=== PATIENT | male | born 1960 | race American Indian/Alaskan Native ===

== ENCOUNTER 2016-11-30 20:45 | Inpatient (IN) | payer OTHER ==
--- NOTE | 2016-11-30 23:41 | Emergency Department Report ---
HPI - General Chief Complaint: Overdose Time Seen by Provider: 11/30/16 22:46 - HPI HPI: The patient is a 56-year-old male presents for evaluation of mental health and the patient reports 3 days of constant severe sadness and suicidal ideation, exacerbated with argument with family members. He states that he intentionally overdosed on prescription blood pressure medications 2 days ago. He states that he has not consumed any medications or other potentially harmful ingestions within the past 24 hours. He also complains of generalized weakness , nausea, mild to moderate generalized abdominal pain, crampy in quality, and moderate to severe lightheadedness, exacerbated with standing, improved with lying down, also for the past 24-48hrs. He admits to decreased urination for the past 24 hours. The patient denies fever, headache, unexplained weight loss or weight gain, heat or cold intolerance, skin, hair, or nail changes, neuro deficits, homicidal ideations, or auditory or visual hallucinations. ED Past Medical Hx - Past Medical History Previous Medical History?: Yes Hx Hypertension: Yes - Surgical History Past Surgical History?: Yes Additional Surgical History: colon CA - Social History Smoking Status: Current Every Day Smoker Substance Use Type: Alcohol - Medications Home Medications: Home Medications Medication Instructions Recorded Confirmed Last Taken Type amLODIPine [Norvasc] 5 mg PO DAILY 12/01/16 12/01/16 1 Day Ago History 5 ED Review of Systems ROS: Stated complaint: MENTAL HEALTH EVALUATION Other details as noted in HPI Constitutional: denies: fever reports weakness ENT: denies: throat or neck pain Respiratory: denies: cough, shortness of breath Cardiovascular: denies: chest pain Endocrine: denies unexplained weight loss or gain Gastrointestinal: reports abdominal pain, nausea Genitourinary: denies: dysuria Musculoskeletal: denies: leg swelling Skin: denies: rash Neurological: denies: headache Hematological/Lymphatic: denies: easy bleeding or easy bruising Psych: reports sadness or hopelessness Physical Exam - Physical Exam Vital Signs: Vital Signs 11/30/16 11/30/16 11/30/16 21:19 22:55 22:59 Temperature 97.6 F Pulse Rate 64 54 L Respiratory 22 21 21 Rate Blood Pressure 100/49 Blood Pressure 94/59 [Left] O2 Sat by Pulse 97 96 96 Oximetry 11/30/16 23:02 Temperature Pulse Rate 53 L Respiratory 21 Rate Blood Pressure Blood Pressure 94/59 [Left] O2 Sat by Pulse 96 Oximetry Physical Exam: General: well-nourished, well-developed, no acute distress Head: Normocephalic, atraumatic Eyes: normal sclera ENT: Mucous membranes are pale and dry Neck: No neck stiffness, no cervical adenopathy Respiratory: Breath sounds equal bilaterally, no wheezing, rales, or rhonchi Cardio: S1 and S2 present, no murmurs, rubs, gallops, capillary refill is delayed Abdomen: Normoactive bowel sounds, soft abdomen, no rigidity, no guarding or rebound tenderness Musc: No pitting edema Skin: No rash Neuro: no facial drooping, normal speech Psych: patient tearful, flat affect, depressed mood, poor insight, no hallucinations ED Course Vital Signs 11/30/16 11/30/16 11/30/16 21:19 22:55 22:59 Temperature 97.6 F Pulse Rate 64 54 L Respiratory 22 21 21 Rate Blood Pressure 100/49 Blood Pressure 94/59 [Left] O2 Sat by Pulse 97 96 96 Oximetry 11/30/16 23:02 Temperature Pulse Rate 53 L Respiratory 21 Rate Blood Pressure Blood Pressure 94/59 [Left] O2 Sat by Pulse 96 Oximetry ED Medical Decision Making - Lab Data Result diagrams: 11/30/16 23:18 11/30/16 23:18 - Medical Decision Making The patient was seen and examined by myself. The patient is placed on a manager cardiac cath and continuous pulse ox. On initial evaluation, the patient was found to be in no distress. Evaluation orders were placed. The patient is given 2 L of saline fluid bolus for treatment of his dehydration. Lab results reveals significantly elevated creatinine of 7, and mild leukocytosis of 12.8. The patient is questioned regarding his severely elevated creatinine level and acute renal failure, he is adamant that he has no history of renal failure. The on-call hospitalist service was contacted. They agreed to admit the patient for further treatment and close monitoring. The ED admit order was placed. The patient was admitted in guarded condition. Critical care attestation.: If time is entered above; I have spent that time in minutes in the direct care of this critically ill patient, excluding procedure time. ED Disposition Clinical Impression: Suicidal behavior, Suicidal ideation, Dehydration, Cocaine abuse, Intentional overdose of drug in tablet form Acute renal failure Qualifiers: Acute renal failure type: unspecified Qualified Code(s): N17.9 - Acute kidney failure, unspecified Disposition: OP ADMITTED IP TO THIS HOSP Is pt being admited?: Yes Does the pt Need Aspirin: Yes Condition: Serious Referrals: PRIMARY CARE, [Primary Care Provider] - 3-5 Days Time of Disposition: 23:40
[2016-11-30 23:49] LABS: Basophils % (Auto) 0.2 % (0.0-1.8); Eosinophils % (Auto) 0.4 % (0.0-4.3); Hematocrit 43.9 % (35.5-45.6); Hemoglobin 14.9 gm/dl (11.8-15.2); Mean Corpuscular HGB Conc 34 % (32-34); Mean Corpuscular Hemoglobin 32 pg (28-32); Mean Corpuscular Volume 94 fl (84-94); Platelet Count 266 K/mm3 (140-440); Red Blood Count 4.69 M/mm3 (3.65-5.03); Red Cell Distribution Width 13.2 % (13.2-15.2); White Blood Count 12.8 K/mm3 (4.5-11.0)
[2016-11-30] MEDS ORDERED: NACL 0.9% 1000 ML 2,000 ML ONE (23:56)
[2016-12-01] LABS: BUN/Creatinine Ratio 4.65; Calcium 9.5 mg/dL (8.4-10.2); Chloride 94.3 mmol/L (98-107); Potassium 4.2 mmol/L (3.6-5.0)
[2016-12-01] MEDS ORDERED: NACL 0.9% 1000 ML IV ONE (00:26)
[2016-12-01] MEDS ORDERED: MILK OF MAGNESIA PO PRN (02:14)
[2016-12-01] MEDS ORDERED: TYLENOL PO PRN (02:14)
[2016-12-01] MEDS ORDERED: ALUM-MAG HYDROX-SIMETH 200-200-20MG/5ML PO PRN (02:14)
[2016-12-01 02:40] LABS: Urine Drugs of Abuse Note Disclamer
[2016-12-01 02:49] LABS: Bilirubin,Urine NEG (Negative); Blood,Urine NEG (Negative); Ketones,Urine NEG (Negative); Leukocyte Esterase,Urine NEG (Negative); Mucus,Urine FEW /HPF; Nitrite,Urine NEG (Negative)
[2016-12-01 03:11] LABS: INR 1.07 (0.87-1.13)
[2016-12-01 03:12] LABS: Partial Thromboplastin Time 26.9 Sec. (24.2-36.6)
[2016-12-01 03:25] LABS: Alanine Aminotransferase 10 units/L (7-56); Albumin 4.2 g/dL (3.9-5); Albumin/Globulin Ratio 1.3 %; Alkaline Phosphatase 56 units/L (35-129); Bilirubin,Total 0.5 mg/dL (0.1-1.2); Lipase 33 units/L (13-60); Total Protein 7.4 g/dL (6.3-8.2)
[2016-12-01 03:26] LABS: Bilirubin,Direct < 0.2 mg/dL (0-0.2); Bilirubin,Indirect 0.3 mg/dL
--- NOTE | 2016-12-01 03:43 | Ultrasound Report ---
FINAL REPORT PROCEDURE: US RENAL BILAT TECHNIQUE: Real-time sonography in multiple planes of the kidneys, ureters and urinary bladder was performed with image documentation. CPT 78186 HISTORY: n/v, abd pain, new ARF COMPARISON: No prior studies are available for comparison. FINDINGS: RIGHT kidney: Normal echotexture. No focal renal mass, calculus, or hydronephrosis. Length: 10.5 cm. LEFT kidney: Normal echotexture. No focal renal mass, calculus, or hydronephrosis. Length: 10.3cm. Bladder: There is a Steinberg catheter within the urinary bladder.. IMPRESSION: Normal evaluation of the kidneys..
[2016-12-01] MEDS ORDERED: NACL 0.9% 1000 ML 1,000 ML IV ONE (03:58)
--- NOTE | 2016-12-01 04:41 | Admit Criteria Form ---
Admission Criteria Documentation: DRUG INGESTION OR OVERDOSE Clinical Indications for Admission to Inpatient Care ( Place 'X' for any and all applicable criteria): Admission is indicated for severe toxicity as indicated by ANY ONE of the following(1)(2)(3)(4)(5)(6): [X ]I. Inpatient admission required rather than observation care (Also use Drug Ingestion or Overdose: Observation Care guideline as appropriate) because of ANY ONE of the following: [ ]a) Altered mental status that is severe or persistent [ ]b) Clinical finding (eg, metabolic acidosis, hypoglycemia, bradycardia) that is severe or persistent [ ]c) Toxic drug level that is persistent [X ]d) Psychiatric risk status not acceptable for outpatient management [ ]e) Continuous intravenous infusion of anticoagulation, platelet inhibitor, vasoactive, or antiarrhythmic medication (15)(16) [X ]f) Other condition, treatment or monitoring requiring inpatient admission [ ]II. Respiratory abnormalities [ ]III. Specific finding indicating severe and likely prolonged drug toxicity [ ]IV. Hemodynamic instability [ ]V. Dangerous arrhythmia [ ]. Hypertension requiring inpatient treatment Extended stay beyond goal length of stay may be needed for (4): [ ]a) Neurologic or respiratory compromise [ ]b) Hemodynamic instability [ ]c) Persistent toxic drug levels (25) [ ]d) Severe drug toxicities or complications [ ]e) Ongoing antidote treatment (eg, acetaminophen overdose)(5) [ ]f) Older patients(65 years or older) The original [facility] content created by [employer] has been revised. The portions of the content which have been revised are identified through the use of italic text or in bold, and [facility] has neither reviewed nor approved the modified material. All other unmodified content is copyright [facility] [employer]. Please see references footnoted in the original [facility] [employer] edition 2016 Admission Criteria Met: Yes
--- NOTE | 2016-12-01 06:17 | History and Physical Report ---
History of Present Illness Date of examination: 12/01/16 Date of admission: 12/01/16 03:52 Chief complaint: Suicidal attempt History of present illness: The patient is a 56-year-old male with h/o HTN, colon cancer s/p colectomy presents for evaluation of mental health and the patient reports 3 days of constant severe sadness and suicidal ideation, exacerbated with argument with family members. He states that he intentionally overdosed on prescription blood pressure medications 2 days ago. He states that he has not consumed any other potentially harmful drugs within the past 24 hours. He also complains of generalized weakness, nausea, mild to moderate generalized abdominal pain, crampy in quality, and moderate to severe in intensity, lightheadedness, exacerbated with standing, improved with lying down, which also going on for the past 24-48hrs. He admits to decreased urination for the past 24 hours. In ther ER his creatinine noted to be 7.3, with elevated BNP and leukocytosis. He is getting admitted for further management. Past medical History: h/o hypertension, colon cancer Past surgical History: s/p colon cancer resection Social History: Lives with family, admits drug abuse, tobacco Use and alcohol abuse. Family History: Significant for breast cancer in mother and sister. Review of System: Constitutional: no fever, no chills, no weight loss, + lightheadedness Ears, eyes, nose, mouth and throat: no nasal congestion, no nasal discharge, no sinus pressure, no vision change, no red eye. Neck: No neck pain or rigidity. Cardiovascular: No chest pain, no orthopnea, no palpitations, no leg swelling Respiratory: No shortness of breath, no cough, no congestion, no wheezing Gastrointestinal: + abdominal pain, + nausea, no vomiting Genitourinary : no hematuria, decrease urination Musculoskeletal: no joint swelling or muscle ache Integumentary: no rash, no pruritis, positive foot ulcers bilaterally Neurological: no parathesias, no numbness, no tingling Endocrine: no cold or heat intolerance, no polyuria or polydipsia Hematologic/Lymphatic: no easy bruising, no easy bleeding, no gland swelling Allergic/Immunologic: no urticaria, no angioedema. Medications and Allergies Allergies Allergy/AdvReac Type Severity Reaction Status Date / Time No Known Allergies Allergy Verified 11/30/16 21:26 Home Medications Medication Instructions Recorded Confirmed Last Taken Type amLODIPine [Norvasc] 5 mg PO DAILY 12/01/16 12/01/16 1 Day Ago History 5 Active Meds: Active Medications Acetaminophen (Tylenol) 650 mg PO Q4HR PRN PRN Reason: Pain MILD(1-3)/Fever >100.5/BENSON Al Hydrox/Mg Hydrox/Simethicone (Alum-Mag Hydrox-Simeth [id number]/5ml) 30 ml PO Q4HR PRN PRN Reason: Indigestion Magnesium Hydroxide (Milk Of Magnesia) 30 ml PO Q12HR PRN PRN Reason: Constipation Exam - Physical Exam Narrative exam: GENERAL: This is well-developed AAM lying on bed appeared to be in no discomfort. HEENT: Normocephalic. Atraumatic. Extraocular motions are intact. No conjunctival congestion or icterus. Patient has moist mucous membranes. External auditory canal and nares patent bilaterally. NECK: Supple. Trachea midline. No JVD, thyromagaly or lymphadenopathy. CHEST/LUNGS: Clear to auscultated bilaterally. There is no respiratory distress noted, breathing nonlabored. No wheezes crackles or rhonchi. HEART/CARDIOVASCULAR: Regular in rate and rhythm. PMI at the apex. There is no gallop rub or murmur. ABDOMEN: Abdomen is soft, nontender. Patient has normal bowel sounds. There is no abdominal distention. No organomagaly or rigidity. SKIN: There is no rash, no erythrema. There is no diaphoresis. Warm and dry. NEUROLOGY: The patient is awake, alert, and oriented. The patient is cooperative. The patient has normal speech. No focal motor deficit. MUSCULOSKELETAL: No joint effusion or tenderness. Muscle strength equal bilaterally. No muscle wasting. EXTRIMITY: No edema, cyanosis or clubbing. PSYCH: + depression, no anxiety noted. Cooperative. - Constitutional Vitals: Temp Pulse Resp BP Pulse Ox 97.6 F 56 L 18 90/59 97 11/30/16 21:19 12/01/16 05:57 12/01/16 05:57 12/01/16 05:57 12/01/16 05:57 Results - Labs CBC & Chem 7: 12/01/16 08:17 12/06/16 04:48 Labs: Laboratory Last Values WBC 12.8 K/mm3 (4.5-11.0) H 11/30/16 23:18 RBC 4.69 M/mm3 (3.65-5.03) 11/30/16 23:18 Hgb 14.9 gm/dl (11.8-15.2) 11/30/16 23:18 Hct 43.9 % (35.5-45.6) 11/30/16 23:18 MCV 94 fl (84-94) 11/30/16 23:18 MCH 32 pg (28-32) 11/30/16 23:18 MCHC 34 % (32-34) 11/30/16 23:18 RDW 13.2 % (13.2-15.2) 11/30/16 23:18 Plt Count 266 K/mm3 (140-440) 11/30/16 23:18 Lymph % (Auto) 12.1 % (13.4-35.0) L 11/30/16 23:18 Cook % (Auto) 10.2 % (0.0-7.3) H 11/30/16 23:18 Eos % (Auto) 0.4 % (0.0-4.3) 11/30/16 23:18 Baso % (Auto) 0.2 % (0.0-1.8) 11/30/16 23:18 Lymph # 1.6 K/mm3 (1.2-5.4) 11/30/16 23:18 Cook # 1.3 K/mm3 (0.0-0.8) H 11/30/16 23:18 Eos # 0.0 K/mm3 (0.0-0.4) 11/30/16 23:18 Baso # 0.0 K/mm3 (0.0-0.1) 11/30/16 23:18 Seg Neutrophils % 77.1 % (40.0-70.0) H 11/30/16 23:18 Seg Neutrophils # 9.9 K/mm3 (1.8-7.7) H 11/30/16 23:18 PT 13.8 Sec. (12.2-14.9) 12/01/16 02:49 INR 1.07 (0.87-1.13) 12/01/16 02:49 APTT 26.9 Sec. (24.2-36.6) 12/01/16 02:49 Sodium 138 mmol/L (137-145) 11/30/16 23:18 Potassium 4.2 mmol/L (3.6-5.0) 11/30/16 23:18 Chloride 94.3 mmol/L (98-107) L 11/30/16 23:18 Carbon Dioxide 22 mmol/L (22-30) 11/30/16 23:18 Anion Gap 26 mmol/L 11/30/16 23:18 BUN 34 mg/dL (9-20) H 11/30/16 23:18 Creatinine 7.3 mg/dL (0.8-1.5) H 11/30/16 23:18 Estimated GFR 8 ml/min 11/30/16 23:18 BUN/Creatinine Ratio 4.65 % 11/30/16 23:18 Glucose 131 mg/dL (75-100) H 11/30/16 23:18 Lactic Acid 1.4 mmol/L (0.7-2.0) 12/01/16 02:49 Calcium 9.5 mg/dL (8.4-10.2) 11/30/16 23:18 Magnesium 2.0 mg/dL (1.7-2.3) 11/30/16 23:18 Total Bilirubin 0.5 mg/dL (0.1-1.2) 12/01/16 02:49 Direct Bilirubin < 0.2 mg/dL (0-0.2) 12/01/16 02:49 Indirect Bilirubin 0.3 mg/dL 12/01/16 02:49 AST 13 units/L (5-40) 12/01/16 02:49 ALT 10 units/L (7-56) 12/01/16 02:49 Alkaline Phosphatase 56 units/L (35-129) 12/01/16 02:49 Total Creatine Kinase 166 units/L (55-170) 12/01/16 02:49 NT-Pro-B Natriuret Pep 2725 pg/mL (0-900) H 11/30/16 23:18 Total Protein 7.4 g/dL (6.3-8.2) 12/01/16 02:49 Albumin 4.2 g/dL (3.9-5) 12/01/16 02:49 Albumin/Globulin Ratio 1.3 % 12/01/16 02:49 Lipase 33 units/L (13-60) 12/01/16 02:49 Urine Color [place] (Yellow) 12/01/16 02:36 Urine Turbidity Cloudy (Clear) 12/01/16 02:36 Urine pH 5.0 (5.0-7.0) 12/01/16 02:36 Ur Specific [place] 1.021 (1.003-1.030) 12/01/16 02:36 Urine Protein 30 mg/dl mg/dL (Negative) 12/01/16 02:36 Urine Glucose (UA) 50 mg/dL (Negative) 12/01/16 02:36 Urine Ketones Neg mg/dL (Negative) 12/01/16 02:36 Urine Blood Neg (Negative) 12/01/16 02:36 Urine Nitrite Neg (Negative) 12/01/16 02:36 Urine Bilirubin Neg (Negative) 12/01/16 02:36 Urine Urobilinogen 2.0 mg/dL (<2.0) 12/01/16 02:36 Ur Leukocyte Esterase Neg (Negative) 12/01/16 02:36 Urine WBC (Auto) 13.0 /HPF (0.0-6.0) H 12/01/16 02:36 Urine RBC (Auto) 3.0 /HPF (0.0-6.0) 12/01/16 02:36 U Epithel Cells (Auto) 1.0 /HPF (0-13.0) 12/01/16 02:36 Amorphous Crystals 1+ 12/01/16 02:36 Hyaline Casts 38 /LPF 12/01/16 02:36 Urine Mucus Few /HPF 12/01/16 02:36 Urine Opiates Screen Presumptive negative 12/01/16 02:36 Urine Methadone Screen Presumptive negative 12/01/16 02:36 Ur Barbiturates Screen Presumptive negative 12/01/16 02:36 Ur Phencyclidine Scrn Presumptive negative 12/01/16 02:36 Ur Amphetamines Screen Presumptive negative 12/01/16 02:36 U Benzodiazepines Scrn Presumptive negative 12/01/16 02:36 Urine Cocaine Screen Presumptive positive 12/01/16 02:36 U Marijuana (THC) Screen Presumptive negative 12/01/16 02:36 Drugs of Abuse Note Disclamer 12/01/16 02:36 Plasma/Serum Alcohol < 0.01 gm% (0-0.07) 11/30/16 23:18 Assessment and Plan Assessment and plan: Acute renal failure Suicidal attempt Leukocytosis likely due to stress History of colon cancer s/p colectomy Hypertension, benign essential Abdominal pain with nausea, likely due to gastroenteritis vs uremia Plan Admit to medicine Mental health consultation Aggressive IV fluid hydration and nephrology consult Renal ultrasound Monitor BMP Supportive care GI and DVT prophylaxis Advance Directives: Yes VTE prophylaxis?: Chemical Plan of care discussed with patient/family: Yes
[2016-12-01] MEDS ORDERED: APRESOLINE IV PRN (06:18)
[2016-12-01] MEDS ORDERED: KIONEX PO PRN (06:18)
[2016-12-01] MEDS ORDERED: MORPHINE IV PRN (06:18)
[2016-12-01 08:43] LABS: Hemoglobin 14.2 gm/dl (11.8-15.2); Mean Corpuscular HGB Conc 33 % (32-34); Mean Corpuscular Hemoglobin 31 pg (28-32); Mean Corpuscular Volume 93 fl (84-94); Platelet Count 252 K/mm3 (140-440); Red Blood Count 4.61 M/mm3 (3.65-5.03); White Blood Count 11.8 K/mm3 (4.5-11.0)
[2016-12-01 09:00] LABS: Calcium 8.5 mg/dL (8.4-10.2); Chloride 99.7 mmol/L (98-107); Potassium 3.4 mmol/L (3.6-5.0)
--- NOTE | 2016-12-01 09:13 | Consultation ---
History of Present Illness - Reason for Consult Consult date: 12/01/16 acute renal failure, metabolic acidosis - History of Present Illness 6-year-old male with a history of hypertension for at least 20 years and previous colon cancer for which he had colectomy. He presents on account of some sadness and suscusi ideation which was exacerbated with an argument with his friend family. Patient intentionally toffan overdose of a blood pressure medication 2 days prior to presentation. Complaining of pain in his lower abdomen which is describes as crampy with exacerbation with severe. Pain is worse when lying down but actually improved some on sitting up. He was arrested last week and had his flanks hti to the knee. Past History Past Medical History: cancer (lung cancer for which he had resection in 1999), hypertension Past Surgical History: No surgical history, Other (colectomy for colon cancer) Social history: single, Lives alone, smoking (1/2 pack per day), alcohol abuse, IV drug use (Patient use powdered cocaine recently), other ([place]) Family history: cancer (mother of breast cancer and one sister of cancer question source.), other (one sister of complications of systemic lupus erythematosus) Medications and Allergies Allergies Allergy/AdvReac Type Severity Reaction Status Date / Time No Known Allergies Allergy Verified 11/30/16 21:26 Home Medications Medication Instructions Recorded Confirmed Last Taken Type amLODIPine [Norvasc] 5 mg PO DAILY 12/01/16 12/01/16 1 Day Ago History 5 Active Meds: Active Medications Acetaminophen (Tylenol) 650 mg PO Q4HR PRN PRN Reason: Pain MILD(1-3)/Fever >100.5/BENSON Al Hydrox/Mg Hydrox/Simethicone (Alum-Mag Hydrox-Simeth [phone]/5ml) 30 ml PO Q4HR PRN PRN Reason: Indigestion Docusate Sodium (Colace) 100 mg PO BID JAMEY Famotidine (Pepcid) 10 mg PO QDAY JAMEY Heparin Sodium (Porcine) (Heparin) 5,000 unit SUB-Q Q8HR JAMEY Hydralazine HCl (Apresoline) 5 mg IV Q30MIN PRN PRN Reason: Hypertension Sodium Chloride (Nacl 0.45% 1000 Ml) 1,000 mls @ 125 mls/hr IV DIRECT JAMEY Magnesium Hydroxide (Milk Of Magnesia) 30 ml PO Q12HR PRN PRN Reason: Constipation Morphine Sulfate (Morphine) 2 mg IV Q4H PRN PRN Reason: Pain, Moderate (4-6) Sodium Polystyrene Sulfonate (Kionex) 15 gm PO Q6H PRN PRN Reason: Hyperkalemia Review of Systems All systems: negative (Constitutional: no fever but admits to chills. No anorexia or weight loss. HEENT: No sore throat or sinus drainage no hearing or vision impairment . However he has blurred vision Cardiovascular: No chest pain , but admits to shortness of breath, palpitations, lower extremity swelling but has had episodes of dizziness. Respiratory: No cough, sputum, shortness of breath, hemoptysis or wheezing. Gastrointestinal: No nausea, vomiting, diarrhea , abdominal pain, hematemesis or melena. Genitourinary: No frequency urgency dysuria or hematuria. hematologic: No abnormal bleeding or bruising. Integumentary: no pruritus or rash. Neurological: Admits to headache and dizziness. No focal weakness or numbness, no syncope or seizures. Musculoskeletal: Admits to joint pains but no stiffness. Psychiatry: Admits to both anxiety and depression) Exam - Vital Signs Vital signs: Vital Signs Temp Pulse Resp BP Pulse Ox 97.6 F 64 22 100/49 97 11/30/16 21:19 11/30/16 21:19 11/30/16 21:19 11/30/16 21:19 11/30/16 21:19 - Physical Exam Narrative exam: Middle-aged -[place] female lying in bed in no acute distress HEENT normocephalic atraumatic, pupils equal reactive to light, pink, clear oropharynx Neck supple, no thyromegaly no jugular venous distention CVS S1-S2 regular rate rhythm without murmur, rub or gallop Chest clear to auscultation Abdomen soft nondistended nontender no organomegaly no bruit bowel sounds present Extremities no edema no cyanosis or clubbing Neuro awake, alert oriented x3 no gross deficit Results - Lab Results 12/01/16 08:17 12/01/16 08:17 Most recent lab results Calcium 8.5 mg/dL (8.4-10.2) 12/01/16 08:17 Magnesium 2.0 mg/dL (1.7-2.3) 02/12/17 23:18 Assessment and Plan - Patient Problems (1) Acute renal failure Current Visit: Yes Status: Acute Qualifiers: Acute renal failure type: unspecified Qualified Code(s): N17.9 - Acute kidney failure, unspecified Plan to address problem: Check serologies and urine indices. Continue intravenous fluids. Close monitoring of electrolytes and renal function. Follow-up volume status with intravenous fluids. (2) Benign hypertension without CHF Current Visit: Yes Status: Acute Plan to address problem: Follow-up blood pressure on current medications (3) Cocaine abuse Current Visit: Yes Status: Acute Plan to address problem: Discuss cessation of cocaine use in detail prior to discharge. (4) Intentional overdose of drug in tablet form Current Visit: Yes Status: Acute Plan to address problem: And this hemodynamically stable. Continue close monitoring
[2016-12-01] MEDS ORDERED: K-DUR PO ONE ×2 (10:27→11:06)
--- NOTE | 2016-12-01 11:14 | Query- Renal Failure ---
Dear Date:__12/01/2016 Compliance Analyst/CDS:__Christiano Salcedo Phone#: Exercise your independent professional judgment when responding to query. Questions asked do not imply a particular answer is desired or expected. We greatly appreciate your clarification on this issue. Clinical Documentation States: The patient was admitted due to hypertension medicine overdose. Acute Renal Failure" was diagnosed (Dr. Giang in H&P on 12/01/2016). Clinical Findings Show: 11/30 12/01 Creatinine 7.3 mg/dl 6.6 mg/dl GFR 8 9 Please clarify if you mean: Acute Renal Failure with or due to: [ ] Tubular Necrosis [ ] Medullary Necrosis [ x] Vasomotor Nephropathy [ ] Shock Kidney [ ] Tubular Nephrosis [ ] Renal Tubular Stasis [ ] Cortical Necrosis [ ] Acute Renal Failure (unspecified) [ ] Lower Tubular Nephrosis [ ] Other: [ ] Not Applicable Present on Admission: [X ] Yes (Y) [ ] Clinically undeterminable (W) [ ] No (N) Please also document response in your Progress Notes and/or Discharge Summary and indicate if the condition was present on admission. MTDD
[2016-12-01] MEDS: COLACE PO SCH ×2 (12:06→22:13)
[2016-12-01] MEDS: PEPCID PO SCH (12:06)
--- NOTE | 2016-12-01 15:45 | Event Note ---
Date: 12/01/16 Patient admitted for drug overdose with the intent of suicide attempt. Patient complains abdominal pain. when I asked him if he has any intent to harm himself or others, he said he don't know. Mental health and nephrology consulted.
[2016-12-01] MEDS: NACL 0.45% 1000 ML 1,000 ML IV SCH (16:36)
[2016-12-01] MEDS: HEPARIN SUB-Q SCH ×2 (21:03→22:13)
[2016-12-02] MEDS ORDERED: AMBIEN PO ONE (00:18)
[2016-12-02] MEDS: NACL 0.45% 1000 ML 1,000 ML IV SCH (03:30)
[2016-12-02] MEDS: HEPARIN SUB-Q SCH ×3 (06:34→21:30)
[2016-12-02 07:05] LABS: Albumin 3.4 g/dL (3.9-5); Albumin/Globulin Ratio 1.4 %; BUN/Creatinine Ratio 9.44; Bilirubin,Total 0.8 mg/dL (0.1-1.2); Calcium 8.1 mg/dL (8.4-10.2); Chloride 103.4 mmol/L (98-107); Phosphorous 2.9 mg/dL (2.5-4.5); Potassium 3.5 mmol/L (3.6-5.0); Total Protein 5.8 g/dL (6.3-8.2)
[2016-12-02] MEDS ORDERED: K-DUR PO ONE (07:30)
--- NOTE | 2016-12-02 07:36 | Progress Note ---
Assessment and Plan - Patient Problems (1) Acute renal failure Current Visit: Yes Status: Acute Qualifiers: Acute renal failure type: unspecified Qualified Code(s): N17.9 - Acute kidney failure, unspecified Plan to address problem: Kidney function improving. Hepatitis B and C negative. Continue intravenous fluids. Close monitoring of electrolytes and renal function. Follow-up volume status with intravenous fluids. (2) Benign hypertension without CHF Current Visit: Yes Status: Acute Plan to address problem: Follow-up blood pressure on current medications (3) Cocaine abuse Current Visit: Yes Status: Acute Plan to address problem: Discuss cessation of cocaine use in detail prior to discharge. (4) Intentional overdose of drug in tablet form Current Visit: Yes Status: Acute Plan to address problem: Patient is hemodynamically stable. Continue close monitoring Subjective Date of service: 12/02/16 Principal diagnosis: acute kidney failure Interval history: Patient seen lying in bed. Complains of suprapubic pain. No nausea or vomiting Objective - Exam Narrative Exam: Middle-aged -[place] female lying in bed in no acute distress HEENT normocephalic atraumatic, pupils equal reactive to light, pink, clear oropharynx Neck supple, no thyromegaly no jugular venous distention CVS S1-S2 regular rate rhythm without murmur, rub or gallop Chest clear to auscultation Abdomen soft nondistended nontender no organomegaly no bruit bowel sounds present Extremities no edema no cyanosis or clubbing Neuro awake, alert oriented x3 no gross deficit - Vital Signs Vital signs: Vital Signs - 12hr 12/01/16 12/02/16 22:00 00:40 Temperature 98.2 F Pulse Rate 57 L Pulse Rate [ 59 L Right Radial] Respiratory 18 Rate Blood Pressure 97/54 [Right Arm] - Lab 12/01/16 08:17 12/02/16 05:51 Most recent lab results Calcium 8.1 mg/dL (8.4-10.2) L 12/02/16 05:51 Phosphorus 2.9 mg/dL (2.5-4.5) 12/02/16 05:51 Magnesium 2.0 mg/dL (1.7-2.3) 11/30/16 23:18
[2016-12-02] MEDS: COLACE PO SCH ×2 (10:15→21:33)
[2016-12-02] MEDS: PEPCID PO SCH (10:15)
--- NOTE | 2016-12-02 11:04 | Query- Renal Failure ---
Dear Date:__12/01/2016 Cable Television Installer/CDS:Lisa Salcedo Phone#: Exercise your independent professional judgment when responding to query. Questions asked do not imply a particular answer is desired or expected. We greatly appreciate your clarification on this issue. Clinical Documentation States: The patient was admitted due to hypertension medicine overdose. "Acute Renal Failure" was diagnosed (Dr. Giang in H&P on 12/01/2016). Clinical Findings Show: 11/30 12/01 Creatinine 7.3 mg/dl 6.6 mg/dl GFR 8 9 Please clarify if you mean: Acute Renal Failure with or due to: [ ] Tubular Necrosis [ ] Medullary Necrosis [ ] Vasomotor Nephropathy [ ] Shock Kidney [ ] Tubular Nephrosis [ ] Renal Tubular Stasis [ ] Cortical Necrosis [ ] Acute Renal Failure (unspecified) [ ] Lower Tubular Nephrosis [ ] Other: [ ] Not Applicable Present on Admission: [ ] Yes (Y) [ ] Clinically undeterminable (W) [ ] No (N) Please also document response in your Progress Notes and/or Discharge Summary and indicate if the condition was present on admission. Please send to the right person who mentioned acute renal failure. MTDD
[2016-12-03] MEDS: NACL 0.45% 1000 ML 1,000 ML IV SCH ×3 (00:46→23:12)
--- NOTE | 2016-12-03 05:10 | Progress Note ---
Assessment and Plan - Patient Problems (1) Accelerated essential hypertension Current Visit: Yes Status: Acute Plan to address problem: monitor bp q shift, continue current therapy (2) Acute renal failure Current Visit: Yes Status: Acute Qualifiers: Acute renal failure type: unspecified Qualified Code(s): N17.9 - Acute kidney failure, unspecified Plan to address problem: Nephrology consulted: continue IVF, supportive care. monitor uop q shift, (3) Cocaine abuse Current Visit: Yes Status: Chronic Plan to address problem: Pt counseled. (4) Intentional overdose of drug in tablet form Current Visit: Yes Status: Acute Plan to address problem: Mental health consulted, [address] (5) DVT prophylaxis Current Visit: Yes Status: Acute History Interval history: Pt lying in bed, Pt denies pain. Pt states that he "wants to end it". No reported nursing events. Awaiting psych eval/placement. Hospitalist Physical - Constitutional Vitals: Temp Pulse Resp BP Pulse Ox 98.2 F 58 L 20 119/68 98 12/03/16 01:13 12/03/16 01:13 12/03/16 01:13 12/03/16 01:13 12/02/16 15:53 General appearance: Present: no acute distress - EENT Eyes: Present: PERRL ENT: hearing intact - Neck Neck: Present: supple - Respiratory Respiratory: bilateral: CTA - Cardiovascular Rhythm: regular Heart Sounds: Present: S1 & S2 - Extremities Extremities: no ischemia Peripheral Pulses: within normal limits - Abdominal General gastrointestinal: soft, non-tender, non-distended - Integumentary Integumentary: Present: clear, dry - Psychiatric Psychiatric: appropriate mood/affect, cooperative - Neurologic Neurologic: CNII-XII intact, no focal deficits, moves all extremities Results - Labs CBC & Chem 7: 12/01/16 08:17 12/02/16 05:51 Labs: Laboratory Last Values WBC 11.8 K/mm3 (4.5-11.0) H 12/01/16 08:17 RBC 4.61 M/mm3 (3.65-5.03) 12/01/16 08:17 Hgb 14.2 gm/dl (11.8-15.2) 12/01/16 08:17 Hct 43.0 % (35.5-45.6) 12/01/16 08:17 MCV 93 fl (84-94) 12/01/16 08:17 MCH 31 pg (28-32) 12/01/16 08:17 MCHC 33 % (32-34) 12/01/16 08:17 RDW 13.0 % (13.2-15.2) L 12/01/16 08:17 Plt Count 252 K/mm3 (140-440) 12/01/16 08:17 Lymph % (Auto) 12.1 % (13.4-35.0) L 11/30/16 23:18 [place] % (Auto) 10.2 % (0.0-7.3) H 11/30/16 23:18 Eos % (Auto) 0.4 % (0.0-4.3) 11/30/16 23:18 Baso % (Auto) 0.2 % (0.0-1.8) 11/30/16 23:18 Lymph # 1.6 K/mm3 (1.2-5.4) 11/30/16 23:18 [place] # 1.3 K/mm3 (0.0-0.8) H 11/30/16 23:18 Eos # 0.0 K/mm3 (0.0-0.4) 11/30/16 23:18 Baso # 0.0 K/mm3 (0.0-0.1) 11/30/16 23:18 Seg Neutrophils % 77.1 % (40.0-70.0) H 11/30/16 23:18 Seg Neutrophils # 9.9 K/mm3 (1.8-7.7) H 11/30/16 23:18 PT 13.8 Sec. (12.2-14.9) 12/01/16 02:49 INR 1.07 (0.87-1.13) 12/01/16 02:49 APTT 26.9 Sec. (24.2-36.6) 12/01/16 02:49 Sodium 137 mmol/L (137-145) 12/02/16 05:51 Potassium 3.5 mmol/L (3.6-5.0) L 12/02/16 05:51 Chloride 103.4 mmol/L (98-107) 12/02/16 05:51 Carbon Dioxide 19 mmol/L (22-30) L 12/02/16 05:51 Anion Gap 18 mmol/L 12/02/16 05:51 BUN 34 mg/dL (9-20) H 12/02/16 05:51 Creatinine 3.6 mg/dL (0.8-1.5) H 12/02/16 05:51 Estimated GFR 18 ml/min 12/02/16 05:51 BUN/Creatinine Ratio 9.44 % 12/02/16 05:51 Glucose 104 mg/dL (75-100) H 12/02/16 05:51 Lactic Acid 1.4 mmol/L (0.7-2.0) 12/01/16 02:49 Calcium 8.1 mg/dL (8.4-10.2) L 12/02/16 05:51 Phosphorus 2.9 mg/dL (2.5-4.5) 12/02/16 05:51 Magnesium 2.0 mg/dL (1.7-2.3) 11/30/16 23:18 Total Bilirubin 0.8 mg/dL (0.1-1.2) 12/02/16 05:51 Direct Bilirubin < 0.2 mg/dL (0-0.2) 12/01/16 02:49 Indirect Bilirubin 0.3 mg/dL 12/01/16 02:49 AST 10 units/L (5-40) 12/02/16 05:51 ALT 8 units/L (7-56) 12/02/16 05:51 Alkaline Phosphatase 43 units/L (35-129) 12/02/16 05:51 Total Creatine Kinase 133 units/L (55-170) 12/01/16 10:47 NT-Pro-B Natriuret Pep 2725 pg/mL (0-900) H 11/30/16 23:18 Total Protein 5.8 g/dL (6.3-8.2) L D 12/02/16 05:51 Albumin 3.4 g/dL (3.9-5) L 12/02/16 05:51 Albumin/Globulin Ratio 1.4 % 12/02/16 05:51 Lipase 33 units/L (13-60) 12/01/16 02:49 Urine Color [place] (Yellow) 12/01/16 02:36 Urine Turbidity Cloudy (Clear) 12/01/16 02:36 Urine pH 5.0 (5.0-7.0) 12/01/16 02:36 Ur Specific [place] 1.021 (1.003-1.030) 12/01/16 02:36 Urine Protein 30 mg/dl mg/dL (Negative) 12/01/16 02:36 Urine Glucose (UA) 50 mg/dL (Negative) 12/01/16 02:36 Urine Ketones Neg mg/dL (Negative) 12/01/16 02:36 Urine Blood Neg (Negative) 12/01/16 02:36 Urine Nitrite Neg (Negative) 12/01/16 02:36 Urine Bilirubin Neg (Negative) 12/01/16 02:36 Urine Urobilinogen 2.0 mg/dL (<2.0) 12/01/16 02:36 Ur Leukocyte Esterase Neg (Negative) 12/01/16 02:36 Urine WBC (Auto) 13.0 /HPF (0.0-6.0) H 12/01/16 02:36 Urine RBC (Auto) 3.0 /HPF (0.0-6.0) 12/01/16 02:36 U Epithel Cells (Auto) 1.0 /HPF (0-13.0) 12/01/16 02:36 Amorphous Crystals 1+ 12/01/16 02:36 Hyaline Casts 38 /LPF 12/01/16 02:36 Urine Mucus Few /HPF 12/01/16 02:36 Urine Opiates Screen Presumptive negative 12/01/16 02:36 Urine Methadone Screen Presumptive negative 12/01/16 02:36 Ur Barbiturates Screen Presumptive negative 12/01/16 02:36 Ur Phencyclidine Scrn Presumptive negative 12/01/16 02:36 Ur Amphetamines Screen Presumptive negative 12/01/16 02:36 U Benzodiazepines Scrn Presumptive negative 12/01/16 02:36 Urine Cocaine Screen Presumptive positive 12/01/16 02:36 U Marijuana (THC) Screen Presumptive negative 12/01/16 02:36 Drugs of Abuse Note Disclamer 12/01/16 02:36 Plasma/Serum Alcohol < 0.01 gm% (0-0.07) 11/30/16 23:18 Hep Bs Antigen Non-reactive (Negative) 12/02/16 05:51 Hepatitis C Antibody Non-reactive (NonReactive) 12/02/16 05:51
[2016-12-03] MEDS: HEPARIN SUB-Q SCH ×3 (05:21→21:23)
[2016-12-03 10:22] LABS: BUN/Creatinine Ratio 9.52; Calcium 8.2 mg/dL (8.4-10.2); Chloride 105.3 mmol/L (98-107); Potassium 3.8 mmol/L (3.6-5.0)
--- NOTE | 2016-12-03 10:42 | Progress Note ---
Assessment and Plan - Patient Problems (1) Acute renal failure Current Visit: Yes Status: Acute Qualifiers: Acute renal failure type: unspecified Qualified Code(s): N17.9 - Acute kidney failure, unspecified Plan to address problem: Kidney function improving. Continue intravenous fluids. Close monitoring of electrolytes and renal function. Follow-up volume status with intravenous fluids. (2) Benign hypertension without CHF Current Visit: Yes Status: Acute Plan to address problem: Follow-up blood pressure on current medications (3) Cocaine abuse Current Visit: Yes Status: Chronic Plan to address problem: Discuss cessation of cocaine use in detail prior to discharge. (4) Intentional overdose of drug in tablet form Current Visit: Yes Status: Acute Plan to address problem: Patient is hemodynamically stable. Continue close monitoring (5) Suprapubic abdominal pain Current Visit: Yes Status: Acute Plan to address problem: Get bladder ultrasound Subjective Date of service: 12/03/16 Principal diagnosis: acute kidney failure Interval history: Patient seen lying in bed. Still Complains of suprapubic pain. No nausea or vomiting Objective - Exam Narrative Exam: Middle-aged -[place] female lying in bed in no acute distress HEENT normocephalic atraumatic, pupils equal reactive to light, pink, clear oropharynx Neck supple, no thyromegaly no jugular venous distention CVS S1-S2 regular rate rhythm without murmur, rub or gallop Chest clear to auscultation Abdomen soft nondistended nontender no organomegaly no bruit bowel sounds present Extremities no edema no cyanosis or clubbing Neuro awake, alert oriented x3 no gross deficit - Vital Signs Vital signs: Vital Signs - 12hr 12/03/16 12/03/16 12/03/16 01:13 04:05 08:00 Temperature 98.2 F 99.0 F 97.5 F L Pulse Rate [ 56 L Left Radial] Pulse Rate [ 58 L 57 L Right Radial] Respiratory 20 20 20 Rate Blood Pressure 119/68 106/59 102/62 [Right Arm] O2 Sat by Pulse 94 97 Oximetry - Lab 12/01/16 08:17 12/03/16 09:50 Most recent lab results Calcium 8.2 mg/dL (8.4-10.2) L 12/03/16 09:50 Phosphorus 2.9 mg/dL (2.5-4.5) 12/02/16 05:51 Magnesium 2.0 mg/dL (1.7-2.3) 11/30/16 23:18
[2016-12-03] MEDS: PEPCID PO SCH (11:00)
[2016-12-03] MEDS: COLACE PO SCH ×2 (11:00→21:23)
[2016-12-03] MEDS ORDERED: AMBIEN PO ONE (22:46)
--- NOTE | 2016-12-03 22:55 | Progress Note ---
Assessment and Plan - Patient Problems (1) Accelerated essential hypertension Current Visit: Yes Status: Acute Plan to address problem: monitor bp q shift, continue current therapy (2) Acute renal failure Current Visit: Yes Status: Acute Qualifiers: Acute renal failure type: unspecified Qualified Code(s): N17.9 - Acute kidney failure, unspecified Plan to address problem: Nephrology consulted: continue IVF, supportive care. monitor uop q shift, (3) Cocaine abuse Current Visit: Yes Status: Chronic Plan to address problem: Pt counseled. (4) Intentional overdose of drug in tablet form Current Visit: Yes Status: Acute Plan to address problem: Mental health consulted, [address] (5) DVT prophylaxis Current Visit: Yes Status: Acute History Interval history: Pt lying in bed, minimally cooperative. Pt denies pain. Pt states that he " wants to end it". No reported nursing events overnight. Awaiting psych eval/ placement. Hospitalist Physical - Constitutional Vitals: Temp Pulse Resp BP Pulse Ox 98.3 F 65 20 130/67 97 12/03/16 19:41 12/03/16 19:41 12/03/16 19:41 12/03/16 19:41 12/03/16 16:31 General appearance: Present: no acute distress - EENT Eyes: Present: PERRL, EOM intact ENT: hearing intact - Neck Neck: Present: supple - Respiratory Respiratory effort: normal Respiratory: bilateral: CTA - Cardiovascular Rhythm: regular Heart Sounds: Present: S1 & S2 - Extremities Extremities: no ischemia Extremity abnormal: edema Peripheral Pulses: within normal limits - Abdominal General gastrointestinal: soft, non-tender, non-distended - Integumentary Integumentary: Present: clear, dry - Neurologic Neurologic: CNII-XII intact Results - Labs CBC & Chem 7: 12/01/16 08:17 12/03/16 09:50 Labs: Laboratory Last Values WBC 11.8 K/mm3 (4.5-11.0) H 12/01/16 08:17 RBC 4.61 M/mm3 (3.65-5.03) 12/01/16 08:17 Hgb 14.2 gm/dl (11.8-15.2) 12/01/16 08:17 Hct 43.0 % (35.5-45.6) 12/01/16 08:17 MCV 93 fl (84-94) 12/01/16 08:17 MCH 31 pg (28-32) 12/01/16 08:17 MCHC 33 % (32-34) 12/01/16 08:17 RDW 13.0 % (13.2-15.2) L 12/01/16 08:17 Plt Count 252 K/mm3 (140-440) 12/01/16 08:17 Lymph % (Auto) 12.1 % (13.4-35.0) L 11/30/16 23:18 [place] % (Auto) 10.2 % (0.0-7.3) H 11/30/16 23:18 Eos % (Auto) 0.4 % (0.0-4.3) 11/30/16 23:18 Baso % (Auto) 0.2 % (0.0-1.8) 11/30/16 23:18 Lymph # 1.6 K/mm3 (1.2-5.4) 11/30/16 23:18 [place] # 1.3 K/mm3 (0.0-0.8) H 11/30/16 23:18 Eos # 0.0 K/mm3 (0.0-0.4) 11/30/16 23:18 Baso # 0.0 K/mm3 (0.0-0.1) 11/30/16 23:18 Seg Neutrophils % 77.1 % (40.0-70.0) H 11/30/16 23:18 Seg Neutrophils # 9.9 K/mm3 (1.8-7.7) H 11/30/16 23:18 PT 13.8 Sec. (12.2-14.9) 12/01/16 02:49 INR 1.07 (0.87-1.13) 12/01/16 02:49 APTT 26.9 Sec. (24.2-36.6) 12/01/16 02:49 Sodium 139 mmol/L (137-145) 12/03/16 09:50 Potassium 3.8 mmol/L (3.6-5.0) 12/03/16 09:50 Chloride 105.3 mmol/L (98-107) 12/03/16 09:50 Carbon Dioxide 20 mmol/L (22-30) L 12/03/16 09:50 Anion Gap 18 mmol/L 12/03/16 09:50 BUN 20 mg/dL (9-20) 12/03/16 09:50 Creatinine 2.1 mg/dL (0.8-1.5) H 12/03/16 09:50 Estimated GFR 33 ml/min 12/03/16 09:50 BUN/Creatinine Ratio 9.52 % 12/03/16 09:50 Glucose 149 mg/dL (75-100) H 12/03/16 09:50 Lactic Acid 1.4 mmol/L (0.7-2.0) 12/01/16 02:49 Calcium 8.2 mg/dL (8.4-10.2) L 12/03/16 09:50 Phosphorus 2.9 mg/dL (2.5-4.5) 12/02/16 05:51 Magnesium 2.0 mg/dL (1.7-2.3) 11/30/16 23:18 Total Bilirubin 0.8 mg/dL (0.1-1.2) 12/02/16 05:51 Direct Bilirubin < 0.2 mg/dL (0-0.2) 12/01/16 02:49 Indirect Bilirubin 0.3 mg/dL 12/01/16 02:49 AST 10 units/L (5-40) 12/02/16 05:51 ALT 8 units/L (7-56) 12/02/16 05:51 Alkaline Phosphatase 43 units/L (35-129) 12/02/16 05:51 Total Creatine Kinase 133 units/L (55-170) 12/01/16 10:47 NT-Pro-B Natriuret Pep 2725 pg/mL (0-900) H 11/30/16 23:18 Total Protein 5.8 g/dL (6.3-8.2) L D 12/02/16 05:51 Albumin 3.4 g/dL (3.9-5) L 12/02/16 05:51 Albumin/Globulin Ratio 1.4 % 12/02/16 05:51 Lipase 33 units/L (13-60) 12/01/16 02:49 Urine Color [place] (Yellow) 12/01/16 02:36 Urine Turbidity Cloudy (Clear) 12/01/16 02:36 Urine pH 5.0 (5.0-7.0) 12/01/16 02:36 Ur Specific [place] 1.021 (1.003-1.030) 12/01/16 02:36 Urine Protein 30 mg/dl mg/dL (Negative) 12/01/16 02:36 Urine Glucose (UA) 50 mg/dL (Negative) 12/01/16 02:36 Urine Ketones Neg mg/dL (Negative) 12/01/16 02:36 Urine Blood Neg (Negative) 12/01/16 02:36 Urine Nitrite Neg (Negative) 12/01/16 02:36 Urine Bilirubin Neg (Negative) 12/01/16 02:36 Urine Urobilinogen 2.0 mg/dL (<2.0) 12/01/16 02:36 Ur Leukocyte Esterase Neg (Negative) 12/01/16 02:36 Urine WBC (Auto) 13.0 /HPF (0.0-6.0) H 12/01/16 02:36 Urine RBC (Auto) 3.0 /HPF (0.0-6.0) 12/01/16 02:36 U Epithel Cells (Auto) 1.0 /HPF (0-13.0) 12/01/16 02:36 Amorphous Crystals 1+ 12/01/16 02:36 Hyaline Casts 38 /LPF 12/01/16 02:36 Urine Mucus Few /HPF 12/01/16 02:36 Urine Opiates Screen Presumptive negative 12/01/16 02:36 Urine Methadone Screen Presumptive negative 12/01/16 02:36 Ur Barbiturates Screen Presumptive negative 12/01/16 02:36 Ur Phencyclidine Scrn Presumptive negative 12/01/16 02:36 Ur Amphetamines Screen Presumptive negative 12/01/16 02:36 U Benzodiazepines Scrn Presumptive negative 12/01/16 02:36 Urine Cocaine Screen Presumptive positive 12/01/16 02:36 U Marijuana (THC) Screen Presumptive negative 12/01/16 02:36 Drugs of Abuse Note Disclamer 12/01/16 02:36 Plasma/Serum Alcohol < 0.01 gm% (0-0.07) 11/30/16 23:18 Complement C3 145 mg/dL (90-180) 12/01/16 10:47 Complement C4 30 mg/dL (16-47) 12/01/16 10:46 Hep Bs Antigen Non-reactive (Negative) 12/02/16 05:51 Hepatitis C Antibody Non-reactive (NonReactive) 12/02/16 05:51
[2016-12-04] MEDS: HEPARIN SUB-Q SCH ×3 (06:27→21:46)
[2016-12-04] MEDS: NACL 0.45% 1000 ML 1,000 ML IV SCH ×2 (06:29→21:45)
[2016-12-04 06:32] LABS: BUN/Creatinine Ratio 8.12; Calcium 8.4 mg/dL (8.4-10.2); Chloride 106.2 mmol/L (98-107); Potassium 3.9 mmol/L (3.6-5.0)
--- NOTE | 2016-12-04 08:34 | Ultrasound Report ---
ULTRASOUND BLADDER RESIDUAL: INDICATION: Suprapubic pain. Evaluate for BPH. COMPARISON: None similar. FINDINGS: Sonographic estimation of pre- and postvoid urinary bladder volume performed. Prevoid urinary bladder volume is 558 cubic centimeters. Postvoid urinary bladder volume is 12.3 cubic centimeters. CONCLUSION: Small postvoid residual, as described. Please correlate. Thank you for the opportunity to participate in this patient's care.
--- NOTE | 2016-12-04 10:12 | Progress Note ---
Assessment and Plan - Patient Problems (1) Acute renal failure Current Visit: Yes Status: Acute Qualifiers: Acute renal failure type: unspecified Qualified Code(s): N17.9 - Acute kidney failure, unspecified Plan to address problem: Kidney function improving. Decrease intravenous fluids. Patient is stable to be transferred to psych from my standpoint. (2) Benign hypertension without CHF Current Visit: Yes Status: Acute Plan to address problem: Follow-up blood pressure on current medications (3) Cocaine abuse Current Visit: Yes Status: Chronic Plan to address problem: Discuss cessation of cocaine use in detail prior to discharge. (4) Intentional overdose of drug in tablet form Current Visit: Yes Status: Acute Plan to address problem: Patient is hemodynamically stable. Continue close monitoring (5) Suprapubic abdominal pain Current Visit: Yes Status: Acute Plan to address problem: BladderScan showed minimal postvoid residual. No mass visualized. Subjective Date of service: 12/04/16 Principal diagnosis: acute kidney failure Interval history: Patient seen lying in bed. Still Complains of suprapubic pain but it is now improving. No nausea or vomiting. Feels depressed Objective - Exam Narrative Exam: Middle-aged -[place] female lying in bed in no acute distress HEENT normocephalic atraumatic, pupils equal reactive to light, pink, clear oropharynx Neck supple, no thyromegaly no jugular venous distention CVS S1-S2 regular rate rhythm without murmur, rub or gallop Chest clear to auscultation Abdomen soft nondistended nontender no organomegaly no bruit bowel sounds present Extremities no edema no cyanosis or clubbing Neuro awake, alert oriented x3 no gross deficit - Vital Signs Vital signs: Vital Signs - 12hr 12/03/16 12/04/16 12/04/16 23:17 04:46 08:31 Temperature 98.8 F 98.5 F Pulse Rate 55 L Pulse Rate [ 64 62 Left Radial] Respiratory 20 20 Rate Blood Pressure 134/73 129/71 [Left Radial Artery] - Lab 12/01/16 08:17 12/04/16 05:39 Most recent lab results Calcium 8.4 mg/dL (8.4-10.2) 12/04/16 05:39 Phosphorus 2.9 mg/dL (2.5-4.5) 12/02/16 05:51 Magnesium 2.0 mg/dL (1.7-2.3) 11/30/16 23:18
[2016-12-04] MEDS: COLACE PO SCH ×2 (11:23→21:46)
[2016-12-04] MEDS: PEPCID PO SCH (11:23)
[2016-12-04] MEDS ORDERED: HABITROL TD SCH (13:00)
[2016-12-04] MEDS: HABITROL TD SCH (14:39)
--- NOTE | 2016-12-04 17:08 | Progress Note ---
Assessment and Plan - Patient Problems (1) Accelerated essential hypertension Current Visit: Yes Status: Acute Plan to address problem: monitor bp q shift, continue current therapy (2) Acute renal failure Current Visit: Yes Status: Acute Qualifiers: Acute renal failure type: unspecified Qualified Code(s): N17.9 - Acute kidney failure, unspecified Plan to address problem: Nephrology consulted: continue IVF, supportive care. monitor uop q shift, (3) Cocaine abuse Current Visit: Yes Status: Chronic Plan to address problem: Pt counseled. (4) Intentional overdose of drug in tablet form Current Visit: Yes Status: Acute Plan to address problem: Mental health consulted, [address] (5) DVT prophylaxis Current Visit: Yes Status: Acute History Interval history: Pt lying in bed, minimally cooperative. Pt denies pain. Pt states that he " wants to end it". No reported nursing events overnight. Awaiting psych eval/ placement. Hospitalist Physical - Constitutional Vitals: Temp Pulse Resp BP Pulse Ox 98.5 F 55 L 20 129/71 97 12/04/16 04:46 12/04/16 08:31 12/04/16 04:46 12/04/16 04:46 12/03/16 16:31 General appearance: Present: no acute distress - EENT Eyes: Present: PERRL, EOM intact ENT: hearing intact - Neck Neck: Present: supple - Respiratory Respiratory effort: normal Respiratory: bilateral: CTA - Cardiovascular Rhythm: regular Heart Sounds: Present: S1 & S2 - Extremities Extremities: no ischemia Peripheral Pulses: within normal limits - Abdominal General gastrointestinal: soft, non-tender, non-distended - Integumentary Integumentary: Present: clear, dry - Psychiatric Psychiatric: cooperative - Neurologic Neurologic: CNII-XII intact Results - Labs CBC & Chem 7: 12/01/16 08:17 12/04/16 05:39 Labs: Laboratory Last Values WBC 11.8 K/mm3 (4.5-11.0) H 12/01/16 08:17 RBC 4.61 M/mm3 (3.65-5.03) 12/01/16 08:17 Hgb 14.2 gm/dl (11.8-15.2) 12/01/16 08:17 Hct 43.0 % (35.5-45.6) 12/01/16 08:17 MCV 93 fl (84-94) 12/01/16 08:17 MCH 31 pg (28-32) 12/01/16 08:17 MCHC 33 % (32-34) 12/01/16 08:17 RDW 13.0 % (13.2-15.2) L 12/01/16 08:17 Plt Count 252 K/mm3 (140-440) 12/01/16 08:17 Lymph % (Auto) 12.1 % (13.4-35.0) L 11/30/16 23:18 [place] % (Auto) 10.2 % (0.0-7.3) H 11/30/16 23:18 Eos % (Auto) 0.4 % (0.0-4.3) 11/30/16 23:18 Baso % (Auto) 0.2 % (0.0-1.8) 11/30/16 23:18 Lymph # 1.6 K/mm3 (1.2-5.4) 11/30/16 23:18 [place] # 1.3 K/mm3 (0.0-0.8) H 11/30/16 23:18 Eos # 0.0 K/mm3 (0.0-0.4) 11/30/16 23:18 Baso # 0.0 K/mm3 (0.0-0.1) 11/30/16 23:18 Seg Neutrophils % 77.1 % (40.0-70.0) H 11/30/16 23:18 Seg Neutrophils # 9.9 K/mm3 (1.8-7.7) H 11/30/16 23:18 PT 13.8 Sec. (12.2-14.9) 12/01/16 02:49 INR 1.07 (0.87-1.13) 12/01/16 02:49 APTT 26.9 Sec. (24.2-36.6) 12/01/16 02:49 Sodium 143 mmol/L (137-145) 12/04/16 05:39 Potassium 3.9 mmol/L (3.6-5.0) 12/04/16 05:39 Chloride 106.2 mmol/L (98-107) 12/04/16 05:39 Carbon Dioxide 22 mmol/L (22-30) 12/04/16 05:39 Anion Gap 19 mmol/L 12/04/16 05:39 BUN 13 mg/dL (9-20) 12/04/16 05:39 Creatinine 1.6 mg/dL (0.8-1.5) H 12/04/16 05:39 Estimated GFR 45 ml/min 12/04/16 05:39 BUN/Creatinine Ratio 8.12 % 12/04/16 05:39 Glucose 100 mg/dL (75-100) 12/04/16 05:39 Lactic Acid 1.4 mmol/L (0.7-2.0) 12/01/16 02:49 Calcium 8.4 mg/dL (8.4-10.2) 12/04/16 05:39 Phosphorus 2.9 mg/dL (2.5-4.5) 12/02/16 05:51 Magnesium 2.0 mg/dL (1.7-2.3) 11/30/16 23:18 Total Bilirubin 0.8 mg/dL (0.1-1.2) 12/02/16 05:51 Direct Bilirubin < 0.2 mg/dL (0-0.2) 12/01/16 02:49 Indirect Bilirubin 0.3 mg/dL 12/01/16 02:49 AST 10 units/L (5-40) 12/02/16 05:51 ALT 8 units/L (7-56) 12/02/16 05:51 Alkaline Phosphatase 43 units/L (35-129) 12/02/16 05:51 Total Creatine Kinase 133 units/L (55-170) 12/01/16 10:47 NT-Pro-B Natriuret Pep 2725 pg/mL (0-900) H 11/30/16 23:18 Total Protein 5.8 g/dL (6.3-8.2) L D 12/02/16 05:51 Albumin 3.4 g/dL (3.9-5) L 12/02/16 05:51 Albumin/Globulin Ratio 1.4 % 12/02/16 05:51 Lipase 33 units/L (13-60) 12/01/16 02:49 Prostate Specific Ag 1.74 ng/mL (0.00-4.00) 12/04/16 05:39 Urine Color [place] (Yellow) 12/01/16 02:36 Urine Turbidity Cloudy (Clear) 12/01/16 02:36 Urine pH 5.0 (5.0-7.0) 12/01/16 02:36 Ur Specific [place] 1.021 (1.003-1.030) 12/01/16 02:36 Urine Protein 30 mg/dl mg/dL (Negative) 12/01/16 02:36 Urine Glucose (UA) 50 mg/dL (Negative) 12/01/16 02:36 Urine Ketones Neg mg/dL (Negative) 12/01/16 02:36 Urine Blood Neg (Negative) 12/01/16 02:36 Urine Nitrite Neg (Negative) 12/01/16 02:36 Urine Bilirubin Neg (Negative) 12/01/16 02:36 Urine Urobilinogen 2.0 mg/dL (<2.0) 12/01/16 02:36 Ur Leukocyte Esterase Neg (Negative) 12/01/16 02:36 Urine WBC (Auto) 13.0 /HPF (0.0-6.0) H 12/01/16 02:36 Urine RBC (Auto) 3.0 /HPF (0.0-6.0) 12/01/16 02:36 U Epithel Cells (Auto) 1.0 /HPF (0-13.0) 12/01/16 02:36 Amorphous Crystals 1+ 12/01/16 02:36 Hyaline Casts 38 /LPF 12/01/16 02:36 Urine Mucus Few /HPF 12/01/16 02:36 Urine Opiates Screen Presumptive negative 12/01/16 02:36 Urine Methadone Screen Presumptive negative 12/01/16 02:36 Ur Barbiturates Screen Presumptive negative 12/01/16 02:36 Ur Phencyclidine Scrn Presumptive negative 12/01/16 02:36 Ur Amphetamines Screen Presumptive negative 12/01/16 02:36 U Benzodiazepines Scrn Presumptive negative 12/01/16 02:36 Urine Cocaine Screen Presumptive positive 12/01/16 02:36 U Marijuana (THC) Screen Presumptive negative 12/01/16 02:36 Drugs of Abuse Note Disclamer 12/01/16 02:36 Plasma/Serum Alcohol < 0.01 gm% (0-0.07) 11/30/16 23:18 JORDAN Screen Negative (Negative) 12/02/16 05:51 Complement C3 145 mg/dL (90-180) 12/01/16 10:47 Complement C4 30 mg/dL (16-47) 12/01/16 10:46 Hep Bs Antigen Non-reactive (Negative) 12/02/16 05:51 Hepatitis C Antibody Non-reactive (NonReactive) 12/02/16 05:51
[2016-12-04] MEDS ORDERED: AMBIEN PO PRN (19:26)
[2016-12-05] MEDS: HEPARIN SUB-Q SCH ×3 (06:07→22:15)
[2016-12-05 08:00] LABS: BUN/Creatinine Ratio 5.62; Calcium 8.8 mg/dL (8.4-10.2); Chloride 105.6 mmol/L (98-107)
[2016-12-05] MEDS: COLACE PO SCH ×2 (09:55→22:16)
[2016-12-05] MEDS: HABITROL TD SCH (09:55)
[2016-12-05] MEDS: PEPCID PO SCH (09:55)
--- NOTE | 2016-12-05 10:26 | Progress Note ---
Assessment and Plan - Patient Problems (1) Acute renal failure Current Visit: Yes Status: Acute Qualifiers: Acute renal failure type: unspecified Qualified Code(s): N17.9 - Acute kidney failure, unspecified Plan to address problem: Kidney function improving. Decrease intravenous fluids. Patient is stable to be transferred to psych from my standpoint. (2) Benign hypertension without CHF Current Visit: Yes Status: Acute Plan to address problem: Follow-up blood pressure on current medications (3) Cocaine abuse Current Visit: Yes Status: Chronic Plan to address problem: Discuss cessation of cocaine use in detail prior to discharge. (4) Intentional overdose of drug in tablet form Current Visit: Yes Status: Acute Plan to address problem: Patient is hemodynamically stable. Continue close monitoring (5) Suprapubic abdominal pain Current Visit: Yes Status: Acute Plan to address problem: BladderScan showed minimal postvoid residual. No mass visualized. Subjective Date of service: 12/05/16 Principal diagnosis: acute kidney failure Interval history: Patient seen lying in bed. Complains of tingling in his feet. Also complains of insomnia. Ambien not helping. No nausea or vomiting. Feels depressed Objective - Exam Narrative Exam: Middle-aged -[place] female lying in bed in no acute distress CVS S1-S2 regular rate rhythm without murmur, rub or gallop Chest clear to auscultation Abdomen soft nondistended nontender no organomegaly no bruit bowel sounds present Extremities no edema no cyanosis or clubbing Neuro awake, alert oriented x3 no gross deficit - Vital Signs Vital signs: Vital Signs - 12hr 12/04/16 12/05/16 12/05/16 23:40 05:27 07:00 Temperature 96.9 F L Pulse Rate 72 Pulse Rate [ 69 60 Left Radial] Pulse Rate [ Right Radial] Respiratory 20 Rate Blood Pressure 131/70 135/86 [Left Radial Artery] O2 Sat by Pulse 97 Oximetry 12/05/16 07:40 Temperature 98.4 F Pulse Rate Pulse Rate [ Left Radial] Pulse Rate [ 55 L Right Radial] Respiratory 20 Rate Blood Pressure 125/82 [Left Radial Artery] O2 Sat by Pulse 100 Oximetry - Lab 12/01/16 08:17 12/05/16 06:25 Most recent lab results Calcium 8.8 mg/dL (8.4-10.2) 12/05/16 06:25 Phosphorus 2.9 mg/dL (2.5-4.5) 12/02/16 05:51 Magnesium 2.0 mg/dL (1.7-2.3) 11/30/16 23:18
--- NOTE | 2016-12-05 21:27 | Progress Note ---
Assessment and Plan - Patient Problems (1) Accelerated essential hypertension Current Visit: Yes Status: Acute Plan to address problem: monitor bp q shift, continue current therapy (2) Acute renal failure Current Visit: Yes Status: Acute Qualifiers: Acute renal failure type: unspecified Qualified Code(s): N17.9 - Acute kidney failure, unspecified Plan to address problem: Nephrology consulted: continue IVF, supportive care. monitor uop q shift, (3) Cocaine abuse Current Visit: Yes Status: Chronic Plan to address problem: Pt counseled. (4) Intentional overdose of drug in tablet form Current Visit: Yes Status: Acute Plan to address problem: Mental health consulted, [address] (5) DVT prophylaxis Current Visit: Yes Status: Acute History Interval history: Pt lying in bed, minimally cooperative. Pt denies pain. Pt states that he " wants to end it". No reported nursing events overnight. Awaiting psych eval/ placement. Hospitalist Physical - Constitutional Vitals: Temp Pulse Resp BP Pulse Ox 98.2 F 57 L 20 127/79 99 12/05/16 19:39 12/05/16 19:39 12/05/16 20:58 12/05/16 19:39 12/05/16 19:39 General appearance: Present: no acute distress - EENT Eyes: Present: PERRL, EOM intact ENT: hearing intact - Neck Neck: Present: supple - Respiratory Respiratory: bilateral: CTA - Cardiovascular Rhythm: regular Heart Sounds: Present: S1 & S2 - Extremities Extremities: no ischemia Peripheral Pulses: within normal limits - Abdominal General gastrointestinal: soft, non-tender, non-distended - Integumentary Integumentary: Present: clear, dry - Psychiatric Psychiatric: depressed - Neurologic Neurologic: CNII-XII intact Results - Labs CBC & Chem 7: 12/01/16 08:17 12/05/16 06:25 Labs: Laboratory Last Values WBC 11.8 K/mm3 (4.5-11.0) H 12/01/16 08:17 RBC 4.61 M/mm3 (3.65-5.03) 12/01/16 08:17 Hgb 14.2 gm/dl (11.8-15.2) 12/01/16 08:17 Hct 43.0 % (35.5-45.6) 12/01/16 08:17 MCV 93 fl (84-94) 12/01/16 08:17 MCH 31 pg (28-32) 12/01/16 08:17 MCHC 33 % (32-34) 12/01/16 08:17 RDW 13.0 % (13.2-15.2) L 12/01/16 08:17 Plt Count 252 K/mm3 (140-440) 12/01/16 08:17 Lymph % (Auto) 12.1 % (13.4-35.0) L 11/30/16 23:18 [place] % (Auto) 10.2 % (0.0-7.3) H 11/30/16 23:18 Eos % (Auto) 0.4 % (0.0-4.3) 11/30/16 23:18 Baso % (Auto) 0.2 % (0.0-1.8) 11/30/16 23:18 Lymph # 1.6 K/mm3 (1.2-5.4) 11/30/16 23:18 [place] # 1.3 K/mm3 (0.0-0.8) H 11/30/16 23:18 Eos # 0.0 K/mm3 (0.0-0.4) 11/30/16 23:18 Baso # 0.0 K/mm3 (0.0-0.1) 11/30/16 23:18 Seg Neutrophils % 77.1 % (40.0-70.0) H 11/30/16 23:18 Seg Neutrophils # 9.9 K/mm3 (1.8-7.7) H 11/30/16 23:18 PT 13.8 Sec. (12.2-14.9) 12/01/16 02:49 INR 1.07 (0.87-1.13) 12/01/16 02:49 APTT 26.9 Sec. (24.2-36.6) 12/01/16 02:49 Sodium 144 mmol/L (137-145) 12/05/16 06:25 Potassium 4.0 mmol/L (3.6-5.0) 12/05/16 06:25 Chloride 105.6 mmol/L (98-107) 12/05/16 06:25 Carbon Dioxide 23 mmol/L (22-30) 12/05/16 06:25 Anion Gap 19 mmol/L 12/05/16 06:25 BUN 9 mg/dL (9-20) 12/05/16 06:25 Creatinine 1.6 mg/dL (0.8-1.5) H 12/05/16 06:25 Estimated GFR 45 ml/min 12/05/16 06:25 BUN/Creatinine Ratio 5.62 % 12/05/16 06:25 Glucose 90 mg/dL (75-100) 12/05/16 06:25 Lactic Acid 1.4 mmol/L (0.7-2.0) 12/01/16 02:49 Calcium 8.8 mg/dL (8.4-10.2) 12/05/16 06:25 Phosphorus 2.9 mg/dL (2.5-4.5) 12/02/16 05:51 Magnesium 2.0 mg/dL (1.7-2.3) 11/30/16 23:18 Total Bilirubin 0.8 mg/dL (0.1-1.2) 12/02/16 05:51 Direct Bilirubin < 0.2 mg/dL (0-0.2) 12/01/16 02:49 Indirect Bilirubin 0.3 mg/dL 12/01/16 02:49 AST 10 units/L (5-40) 12/02/16 05:51 ALT 8 units/L (7-56) 12/02/16 05:51 Alkaline Phosphatase 43 units/L (35-129) 12/02/16 05:51 Total Creatine Kinase 133 units/L (55-170) 12/01/16 10:47 NT-Pro-B Natriuret Pep 2725 pg/mL (0-900) H 11/30/16 23:18 Total Protein 5.8 g/dL (6.3-8.2) L D 12/02/16 05:51 Albumin 3.4 g/dL (3.9-5) L 12/02/16 05:51 Albumin/Globulin Ratio 1.4 % 12/02/16 05:51 Lipase 33 units/L (13-60) 12/01/16 02:49 Prostate Specific Ag 1.74 ng/mL (0.00-4.00) 12/04/16 05:39 Urine Color [place] (Yellow) 12/01/16 02:36 Urine Turbidity Cloudy (Clear) 12/01/16 02:36 Urine pH 5.0 (5.0-7.0) 12/01/16 02:36 Ur Specific [place] 1.021 (1.003-1.030) 12/01/16 02:36 Urine Protein 30 mg/dl mg/dL (Negative) 12/01/16 02:36 Urine Glucose (UA) 50 mg/dL (Negative) 12/01/16 02:36 Urine Ketones Neg mg/dL (Negative) 12/01/16 02:36 Urine Blood Neg (Negative) 12/01/16 02:36 Urine Nitrite Neg (Negative) 12/01/16 02:36 Urine Bilirubin Neg (Negative) 12/01/16 02:36 Urine Urobilinogen 2.0 mg/dL (<2.0) 12/01/16 02:36 Ur Leukocyte Esterase Neg (Negative) 12/01/16 02:36 Urine WBC (Auto) 13.0 /HPF (0.0-6.0) H 12/01/16 02:36 Urine RBC (Auto) 3.0 /HPF (0.0-6.0) 12/01/16 02:36 U Epithel Cells (Auto) 1.0 /HPF (0-13.0) 12/01/16 02:36 Amorphous Crystals 1+ 12/01/16 02:36 Hyaline Casts 38 /LPF 12/01/16 02:36 Urine Mucus Few /HPF 12/01/16 02:36 Urine Opiates Screen Presumptive negative 12/01/16 02:36 Urine Methadone Screen Presumptive negative 12/01/16 02:36 Ur Barbiturates Screen Presumptive negative 12/01/16 02:36 Ur Phencyclidine Scrn Presumptive negative 12/01/16 02:36 Ur Amphetamines Screen Presumptive negative 12/01/16 02:36 U Benzodiazepines Scrn Presumptive negative 12/01/16 02:36 Urine Cocaine Screen Presumptive positive 12/01/16 02:36 U Marijuana (THC) Screen Presumptive negative 12/01/16 02:36 Drugs of Abuse Note Disclamer 12/01/16 02:36 Plasma/Serum Alcohol < 0.01 gm% (0-0.07) 11/30/16 23:18 JORDAN Screen Negative (Negative) 12/02/16 05:51 Complement C3 145 mg/dL (90-180) 12/01/16 10:47 Complement C4 30 mg/dL (16-47) 12/01/16 10:46 Tot Complement (CH50) >60 U/mL (31-60) H 12/02/16 10:46 Hep Bs Antigen Non-reactive (Negative) 12/02/16 05:51 Hepatitis C Antibody Non-reactive (NonReactive) 12/02/16 05:51
[2016-12-06] MEDS: RESTORIL PO PRN ×2 (01:06→22:03)
[2016-12-06 06:03] LABS: BUN/Creatinine Ratio 5.71; Chloride 104.3 mmol/L (98-107)
[2016-12-06] MEDS: HEPARIN SUB-Q SCH ×4 (06:15→22:03)
--- NOTE | 2016-12-06 09:31 | Progress Note ---
Assessment and Plan (1) Acute renal failure Current Visit: Yes Status: Acute Qualifiers: Acute renal failure type: unspecified Qualified Code(s): N17.9 - Acute kidney failure, unspecified Plan to address problem: Kidney function improving. CR at 1.4 now. D/c IVF. Encourage oral hydration. Patient is stable to be transferred to psych from my standpoint. (2) Benign hypertension without CHF Current Visit: Yes Status: Acute Plan to address problem: Stable, Follow-up blood pressure on current medications (3) Cocaine abuse Current Visit: Yes Status: Chronic Plan to address problem: Discuss cessation of cocaine use in detail prior to discharge. (4) Intentional overdose of drug in tablet form Current Visit: Yes Status: Acute Plan to address problem: Patient is hemodynamically stable. Continue close monitoring Subjective Date of service: 12/06/16 Principal diagnosis: acute kidney failure Interval history: Chart reviewed. No complaints. Objective - Exam Narrative Exam: Middle-aged -[place] female lying in bed in no acute distress PERRLA, EOMI, has eye drainage B/L Supple neck, No lymphadenopathy, no thyroid enlargement CVS S1-S2 regular rate rhythm without murmur, rub or gallop Chest clear to auscultation, no wheezing Abdomen soft nondistended nontender no organomegaly no bruit bowel sounds present Extremities no edema no cyanosis or clubbing Neuro awake, alert oriented x3 no gross deficit - Vital Signs Vital signs: Vital Signs - 12hr 12/06/16 12/06/16 12/06/16 00:02 04:11 08:34 Temperature 98.6 F 98.2 F 98.4 F Pulse Rate [ 64 50 L 60 Right Radial] Respiratory 20 20 20 Rate Blood Pressure 170/98 122/70 139/92 [Right Arm] O2 Sat by Pulse 98 98 Oximetry - Lab 12/01/16 08:17 12/06/16 04:48 Most recent lab results Calcium 9.0 mg/dL (8.4-10.2) 12/06/16 04:48 Phosphorus 2.9 mg/dL (2.5-4.5) 12/02/16 05:51 Magnesium 2.0 mg/dL (1.7-2.3) 11/30/16 23:18
[2016-12-06] MEDS: COLACE PO SCH ×2 (10:07→22:04)
[2016-12-06] MEDS: PEPCID PO SCH (10:07)
[2016-12-06] MEDS: HABITROL TD SCH (11:24)
--- NOTE | 2016-12-06 19:39 | Consultation ---
History of Present Illness - Reason for Consult Consult date: 12/06/16 Reason for consult: psych management - Chief Complaint Chief complaint: "I made a mistake " - History of Present Psychiatric Illness 56 year old BM with prior history of depression presents to [facility] after overdosing on his blood pressure pills around 11/28. Patient notes that he had been depressed for a long time- 3 month duration for this episode. Stressors contributing to the depression include feeling unloved and using etoh and illicit drugs to help cover up his long standing history of depression. Patient also notes being involved with the wrong influences. His concurrent symptoms included poor focus, poor energy, lack of interests, and a worthlessness feeling. He states that he become despondent and decided to overdose while drinking on his blood pressure pills in order to not wake up the next day. After becoming sick from the pills, he realized what he had done and had a change of heart after several days- leading to 911 being called. Patient has been evaluated while in the hospital and we've been asked to help manage the patient's psych symptoms. Currently he is still depressed and was tearful during our interview. He denies any current SI/HI/AH/VH. He denies any grandiose thoughts. He denies any psychosis or euphoric episodes. He notes that while in the hospital he has turned back to God and feels that he will be fine. Medications and Allergies Allergies Allergy/AdvReac Type Severity Reaction Status Date / Time No Known Allergies Allergy Verified 11/30/16 21:26 Home Medications Medication Instructions Recorded Confirmed Last Taken Type amLODIPine [Norvasc] 5 mg PO DAILY 12/01/16 12/01/16 1 Day Ago History 5 Active Meds: Active Medications Acetaminophen (Tylenol) 650 mg PO Q4HR PRN PRN Reason: Pain MILD(1-3)/Fever >100.5/BENSON Al Hydrox/Mg Hydrox/Simethicone (Alum-Mag Hydrox-Simeth [phone]/5ml) 30 ml PO Q4HR PRN PRN Reason: Indigestion Last Admin: 12/02/16 20:45 Dose: 30 ml Docusate Sodium (Colace) 100 mg PO BID [facility] Last Admin: 12/06/16 10:07 Dose: 100 mg Famotidine (Pepcid) 10 mg PO QDAY [facility] Last Admin: 12/06/16 10:07 Dose: 10 mg Heparin Sodium (Porcine) (Heparin) 5,000 unit SUB-Q Q8HR [facility] Last Admin: 12/06/16 14:51 Dose: Not Given Hydralazine HCl (Apresoline) 5 mg IV Q30MIN PRN PRN Reason: Hypertension Magnesium Hydroxide (Milk Of Magnesia) 30 ml PO Q12HR PRN PRN Reason: Constipation Morphine Sulfate (Morphine) 2 mg IV Q4H PRN PRN Reason: Pain, Moderate (4-6) Nicotine (Habitrol) 7 mg TD QDAY [facility] Last Admin: 12/06/16 11:24 Dose: Not Given Temazepam (Restoril) 30 mg PO QHS PRN PRN Reason: Sleep Last Admin: 12/06/16 01:06 Dose: 30 mg Past psychiatric history - Past Medical History Past Medical History: hypertension - past Psychiatric treatment and history Psych: Depression psychiatric treatment history: inpt: none outpt: none Suicide attempts: 7 years after separation from he O/D on pills chart review suggests others also - Social History Social history: other (, has a "lady friend" as a support system, grew up without his father, mom and sibling treated him as the black sheep of the family, 3 children, 11th grade education, +SSD, no work. Substance history: etoh- 1 DUI, drinks 6 pack daily since age 12, no current withdrawal, cocaine use- last 1 week ago, began age 41 on/off as a means to be happy. Has been to rehab in the 90s for 30 days in [facility] Family history: sister depression twin with depression, etoh in all family members) Mental Status Exam - Vital signs Last Vital Signs Temp 98.4 F 12/06/16 08:34 Pulse 60 12/06/16 08:34 Resp 18 12/06/16 10:00 BP 139/92 12/06/16 08:34 Pulse Ox 98 12/06/16 04:11 - Exam Orientation: time, place, person Affect: depressed, anxious Mood: calm, sad Thought Process: Intact Perceptions: none Speech: normal rate and pattern Concentration: focused Motor activity: normal Level of consciousness: alert Memory: Intact Interaction: cooperative Results Result Diagrams: 12/01/16 08:17 12/06/16 04:48 Abnormal lab results 12/06/16 Range/Units 04:48 BUN 8 L (9-20) mg/dL All other labs normal. Assessment and Plan Assessment and plan: 56 year old BM who presents to [facility] after a suicide attempt via overdose on his blood pressure medications. Patient notes that he's still depressed and was tearful during the interview. He notes that he's learned from this mistake and has turned to God- insisting that he doesn't need further help. After further discussions with the patient regarding his ongoing bout with depression that has led to prior attempts, he said he understood the value of additional treatment- both through meds and ongoing therapy. He denies symptoms of psychosis and jimy. Contributing to the depression is ongoing etoh and substance abuse. Plan: 1 depression- add effexor xr 75 mg daily to regimen for depression. black box warning of increased suicidal thoughts, risks, benefits were discussed. goal is to decrease depressive symptoms 2. will also need outpt therapy to deal with self esteem, worthlessness, and past family issues 3. substance use- patient will benefit from outpt substance groups such as AA. No current withdrawal symptoms to address. - Psychiatric problem (1) Severe recurrent major depression without psychotic features Current Visit: Yes Status: Chronic (2) EtOH dependence Current Visit: Yes Status: Chronic Qualifiers: Substance use status: uncomplicated Complication of substance-induced condition: C Qualified Code(s): F10.20 - Alcohol dependence, uncomplicated
[2016-12-07] MEDS: HEPARIN SUB-Q SCH ×3 (06:12→21:55)
--- NOTE | 2016-12-07 07:47 | Progress Note ---
Assessment and Plan - Patient Problems (1) Accelerated essential hypertension Current Visit: Yes Status: Acute Plan to address problem: monitor bp q shift, continue current therapy (2) Acute renal failure Current Visit: Yes Status: Acute Qualifiers: Acute renal failure type: unspecified Qualified Code(s): N17.9 - Acute kidney failure, unspecified Plan to address problem: Nephrology consulted: continue IVF, supportive care. monitor uop q shift, (3) Cocaine abuse Current Visit: Yes Status: Chronic Plan to address problem: Pt counseled. (4) Intentional overdose of drug in tablet form Current Visit: Yes Status: Acute Plan to address problem: Mental health consulted, [address] (5) DVT prophylaxis Current Visit: Yes Status: Acute History Interval history: Pt lying in bed, minimally cooperative. Pt denies pain. Pt states that he " wants to end it". No reported nursing events overnight. Awaiting psych eval/ placement. Hospitalist Physical - Constitutional Vitals: Temp Pulse Resp BP Pulse Ox 98.1 F 56 L 18 128/88 99 12/07/16 03:35 12/07/16 03:35 12/07/16 03:35 12/07/16 03:35 12/07/16 03:35 General appearance: Present: no acute distress - EENT Eyes: Present: PERRL, EOM intact ENT: hearing intact - Neck Neck: Present: supple - Respiratory Respiratory effort: normal Respiratory: bilateral: CTA - Cardiovascular Rhythm: regular Heart Sounds: Present: S1 & S2 - Extremities Extremities: no ischemia - Abdominal General gastrointestinal: soft, non-tender, non-distended - Integumentary Integumentary: Present: clear, warm, dry - Psychiatric Psychiatric: appropriate mood/affect, cooperative - Neurologic Neurologic: CNII-XII intact Results - Labs CBC & Chem 7: 12/01/16 08:17 12/06/16 04:48 Labs: Laboratory Last Values WBC 11.8 K/mm3 (4.5-11.0) H 12/01/16 08:17 RBC 4.61 M/mm3 (3.65-5.03) 12/01/16 08:17 Hgb 14.2 gm/dl (11.8-15.2) 12/01/16 08:17 Hct 43.0 % (35.5-45.6) 12/01/16 08:17 MCV 93 fl (84-94) 12/01/16 08:17 MCH 31 pg (28-32) 12/01/16 08:17 MCHC 33 % (32-34) 12/01/16 08:17 RDW 13.0 % (13.2-15.2) L 12/01/16 08:17 Plt Count 252 K/mm3 (140-440) 12/01/16 08:17 Lymph % (Auto) 12.1 % (13.4-35.0) L 11/30/16 23:18 [place] % (Auto) 10.2 % (0.0-7.3) H 11/30/16 23:18 Eos % (Auto) 0.4 % (0.0-4.3) 11/30/16 23:18 Baso % (Auto) 0.2 % (0.0-1.8) 11/30/16 23:18 Lymph # 1.6 K/mm3 (1.2-5.4) 11/30/16 23:18 [place] # 1.3 K/mm3 (0.0-0.8) H 11/30/16 23:18 Eos # 0.0 K/mm3 (0.0-0.4) 11/30/16 23:18 Baso # 0.0 K/mm3 (0.0-0.1) 11/30/16 23:18 Seg Neutrophils % 77.1 % (40.0-70.0) H 11/30/16 23:18 Seg Neutrophils # 9.9 K/mm3 (1.8-7.7) H 11/30/16 23:18 PT 13.8 Sec. (12.2-14.9) 12/01/16 02:49 INR 1.07 (0.87-1.13) 12/01/16 02:49 APTT 26.9 Sec. (24.2-36.6) 12/01/16 02:49 Sodium 143 mmol/L (137-145) 12/06/16 04:48 Potassium 4.0 mmol/L (3.6-5.0) 12/06/16 04:48 Chloride 104.3 mmol/L (98-107) 12/06/16 04:48 Carbon Dioxide 23 mmol/L (22-30) 12/06/16 04:48 Anion Gap 20 mmol/L 12/06/16 04:48 BUN 8 mg/dL (9-20) L 12/06/16 04:48 Creatinine 1.4 mg/dL (0.8-1.5) 12/06/16 04:48 Estimated GFR 52 ml/min 12/06/16 04:48 BUN/Creatinine Ratio 5.71 % 12/06/16 04:48 Glucose 89 mg/dL (75-100) 12/06/16 04:48 Lactic Acid 1.4 mmol/L (0.7-2.0) 12/01/16 02:49 Calcium 9.0 mg/dL (8.4-10.2) 12/06/16 04:48 Phosphorus 2.9 mg/dL (2.5-4.5) 12/02/16 05:51 Magnesium 2.0 mg/dL (1.7-2.3) 11/30/16 23:18 Total Bilirubin 0.8 mg/dL (0.1-1.2) 12/02/16 05:51 Direct Bilirubin < 0.2 mg/dL (0-0.2) 12/01/16 02:49 Indirect Bilirubin 0.3 mg/dL 12/01/16 02:49 AST 10 units/L (5-40) 12/02/16 05:51 ALT 8 units/L (7-56) 12/02/16 05:51 Alkaline Phosphatase 43 units/L (35-129) 12/02/16 05:51 Total Creatine Kinase 133 units/L (55-170) 12/01/16 10:47 NT-Pro-B Natriuret Pep 2725 pg/mL (0-900) H 11/30/16 23:18 Total Protein 5.8 g/dL (6.3-8.2) L D 12/02/16 05:51 Albumin 3.4 g/dL (3.9-5) L 12/02/16 05:51 Albumin/Globulin Ratio 1.4 % 12/02/16 05:51 Lipase 33 units/L (13-60) 12/01/16 02:49 Prostate Specific Ag 1.74 ng/mL (0.00-4.00) 12/04/16 05:39 Urine Color [place] (Yellow) 12/01/16 02:36 Urine Turbidity Cloudy (Clear) 12/01/16 02:36 Urine pH 5.0 (5.0-7.0) 12/01/16 02:36 Ur Specific [place] 1.021 (1.003-1.030) 12/01/16 02:36 Urine Protein 30 mg/dl mg/dL (Negative) 12/01/16 02:36 Urine Glucose (UA) 50 mg/dL (Negative) 12/01/16 02:36 Urine Ketones Neg mg/dL (Negative) 12/01/16 02:36 Urine Blood Neg (Negative) 12/01/16 02:36 Urine Nitrite Neg (Negative) 12/01/16 02:36 Urine Bilirubin Neg (Negative) 12/01/16 02:36 Urine Urobilinogen 2.0 mg/dL (<2.0) 12/01/16 02:36 Ur Leukocyte Esterase Neg (Negative) 12/01/16 02:36 Urine WBC (Auto) 13.0 /HPF (0.0-6.0) H 12/01/16 02:36 Urine RBC (Auto) 3.0 /HPF (0.0-6.0) 12/01/16 02:36 U Epithel Cells (Auto) 1.0 /HPF (0-13.0) 12/01/16 02:36 Amorphous Crystals 1+ 12/01/16 02:36 Hyaline Casts 38 /LPF 12/01/16 02:36 Urine Mucus Few /HPF 12/01/16 02:36 Urine Opiates Screen Presumptive negative 12/01/16 02:36 Urine Methadone Screen Presumptive negative 12/01/16 02:36 Ur Barbiturates Screen Presumptive negative 12/01/16 02:36 Ur Phencyclidine Scrn Presumptive negative 12/01/16 02:36 Ur Amphetamines Screen Presumptive negative 12/01/16 02:36 U Benzodiazepines Scrn Presumptive negative 12/01/16 02:36 Urine Cocaine Screen Presumptive positive 12/01/16 02:36 U Marijuana (THC) Screen Presumptive negative 12/01/16 02:36 Drugs of Abuse Note Disclamer 12/01/16 02:36 Plasma/Serum Alcohol < 0.01 gm% (0-0.07) 11/30/16 23:18 JORDAN Screen Negative (Negative) 12/02/16 05:51 Complement C3 145 mg/dL (90-180) 12/01/16 10:47 Complement C4 30 mg/dL (16-47) 12/01/16 10:46 Tot Complement (CH50) >60 U/mL (31-60) H 12/02/16 10:46 Hep Bs Antigen Non-reactive (Negative) 12/02/16 05:51 Hepatitis C Antibody Non-reactive (NonReactive) 12/02/16 05:51
[2016-12-07] MEDS: EFFEXOR XR PO SCH (09:43)
[2016-12-07] MEDS: PEPCID PO SCH (09:43)
[2016-12-07] MEDS: COLACE PO SCH ×2 (09:43→21:57)
[2016-12-07] MEDS: HABITROL TD SCH (09:44)
--- NOTE | 2016-12-07 11:05 | Progress Note ---
Assessment and Plan (1) Acute renal failure Current Visit: Yes Status: Acute Qualifiers: Acute renal failure type: unspecified Qualified Code(s): N17.9 - Acute kidney failure, unspecified Plan to address problem: Kidney function improving. CR at 1.4 based on labs from 12/06. Encourage oral hydration. Patient is stable for d/c my standpoint. (2) Benign hypertension without CHF Current Visit: Yes Status: Acute Plan to address problem: Stable, Follow-up blood pressure on current medications (3) Cocaine abuse Current Visit: Yes Status: Chronic Plan to address problem: Discuss cessation of cocaine use in detail prior to discharge. (4) Intentional overdose of drug in tablet form Current Visit: Yes Status: Acute Plan to address problem: Patient is hemodynamically stable. Continue close monitoring Subjective Date of service: 12/07/16 Principal diagnosis: acute kidney failure Interval history: Chart reviewed. No new events. [facility] consult note reviewed. Objective - Exam Narrative Exam: Middle-aged -[place] female lying in bed in no acute distress PERRLA, EOMI, has eye drainage B/L Supple neck, No lymphadenopathy, no thyroid enlargement CVS S1-S2 regular rate rhythm without murmur, rub or gallop Chest clear to auscultation, no wheezing Abdomen soft nondistended nontender no organomegaly no bruit bowel sounds present Extremities no edema no cyanosis or clubbing Neuro awake, alert oriented x3 no gross deficit - Vital Signs Vital signs: Vital Signs - 12hr 12/07/16 12/07/16 12/07/16 00:26 03:35 07:55 Temperature 98.6 F 98.1 F 98.7 F Pulse Rate [ 62 56 L Left Radial] Pulse Rate [ 68 Right Dorsalis Pedis] Respiratory 20 18 20 Rate Blood Pressure 124/80 128/88 132/91 [Left Arm] O2 Sat by Pulse 96 99 100 Oximetry - Lab 12/01/16 08:17 12/06/16 04:48 Most recent lab results Calcium 9.0 mg/dL (8.4-10.2) 12/06/16 04:48 Phosphorus 2.9 mg/dL (2.5-4.5) 12/02/16 05:51 Magnesium 2.0 mg/dL (1.7-2.3) 11/30/16 23:18
--- NOTE | 2016-12-07 15:31 | Progress Note ---
Assessment and Plan - Patient Problems (1) Accelerated essential hypertension Current Visit: Yes Status: Acute Plan to address problem: monitor bp q shift, continue current therapy (2) Acute renal failure Current Visit: Yes Status: Acute Qualifiers: Acute renal failure type: unspecified Qualified Code(s): N17.9 - Acute kidney failure, unspecified Plan to address problem: Nephrology consulted: continue IVF, supportive care. monitor uop q shift, (3) Cocaine abuse Current Visit: Yes Status: Chronic Plan to address problem: Pt counseled. (4) Intentional overdose of drug in tablet form Current Visit: Yes Status: Acute Plan to address problem: Mental health consulted, [address] (5) DVT prophylaxis Current Visit: Yes Status: Acute History Interval history: Pt lying in bed, minimally cooperative. Pt denies pain. No reported nursing events overnight. Awaiting psych eval/placement. Hospitalist Physical - Constitutional Vitals: Temp Pulse Resp BP Pulse Ox 98.7 F 68 20 132/91 100 12/07/16 07:55 12/07/16 07:55 12/07/16 07:55 12/07/16 07:55 12/07/16 07:55 General appearance: Present: no acute distress - EENT Eyes: Present: PERRL, EOM intact ENT: hearing intact - Neck Neck: Present: supple - Respiratory Respiratory effort: normal Respiratory: bilateral: CTA - Cardiovascular Rhythm: regular Heart Sounds: Present: S1 & S2 - Extremities Extremities: no ischemia Peripheral Pulses: within normal limits - Abdominal General gastrointestinal: soft, non-tender, non-distended - Integumentary Integumentary: Present: clear, dry - Psychiatric Psychiatric: appropriate mood/affect, cooperative - Neurologic Neurologic: CNII-XII intact Results - Labs CBC & Chem 7: 12/01/16 08:17 12/06/16 04:48 Labs: Laboratory Last Values WBC 11.8 K/mm3 (4.5-11.0) H 12/01/16 08:17 RBC 4.61 M/mm3 (3.65-5.03) 12/01/16 08:17 Hgb 14.2 gm/dl (11.8-15.2) 12/01/16 08:17 Hct 43.0 % (35.5-45.6) 12/01/16 08:17 MCV 93 fl (84-94) 12/01/16 08:17 MCH 31 pg (28-32) 12/01/16 08:17 MCHC 33 % (32-34) 12/01/16 08:17 RDW 13.0 % (13.2-15.2) L 12/01/16 08:17 Plt Count 252 K/mm3 (140-440) 12/01/16 08:17 Lymph % (Auto) 12.1 % (13.4-35.0) L 11/30/16 23:18 [place] % (Auto) 10.2 % (0.0-7.3) H 11/30/16 23:18 Eos % (Auto) 0.4 % (0.0-4.3) 11/30/16 23:18 Baso % (Auto) 0.2 % (0.0-1.8) 11/30/16 23:18 Lymph # 1.6 K/mm3 (1.2-5.4) 11/30/16 23:18 [place] # 1.3 K/mm3 (0.0-0.8) H 11/30/16 23:18 Eos # 0.0 K/mm3 (0.0-0.4) 11/30/16 23:18 Baso # 0.0 K/mm3 (0.0-0.1) 11/30/16 23:18 Seg Neutrophils % 77.1 % (40.0-70.0) H 11/30/16 23:18 Seg Neutrophils # 9.9 K/mm3 (1.8-7.7) H 11/30/16 23:18 PT 13.8 Sec. (12.2-14.9) 12/01/16 02:49 INR 1.07 (0.87-1.13) 12/01/16 02:49 APTT 26.9 Sec. (24.2-36.6) 12/01/16 02:49 Sodium 143 mmol/L (137-145) 12/06/16 04:48 Potassium 4.0 mmol/L (3.6-5.0) 12/06/16 04:48 Chloride 104.3 mmol/L (98-107) 12/06/16 04:48 Carbon Dioxide 23 mmol/L (22-30) 12/06/16 04:48 Anion Gap 20 mmol/L 12/06/16 04:48 BUN 8 mg/dL (9-20) L 12/06/16 04:48 Creatinine 1.4 mg/dL (0.8-1.5) 12/06/16 04:48 Estimated GFR 52 ml/min 12/06/16 04:48 BUN/Creatinine Ratio 5.71 % 12/06/16 04:48 Glucose 89 mg/dL (75-100) 12/06/16 04:48 Lactic Acid 1.4 mmol/L (0.7-2.0) 12/01/16 02:49 Calcium 9.0 mg/dL (8.4-10.2) 12/06/16 04:48 Phosphorus 2.9 mg/dL (2.5-4.5) 12/02/16 05:51 Magnesium 2.0 mg/dL (1.7-2.3) 11/30/16 23:18 Total Bilirubin 0.8 mg/dL (0.1-1.2) 12/02/16 05:51 Direct Bilirubin < 0.2 mg/dL (0-0.2) 12/01/16 02:49 Indirect Bilirubin 0.3 mg/dL 12/01/16 02:49 AST 10 units/L (5-40) 12/02/16 05:51 ALT 8 units/L (7-56) 12/02/16 05:51 Alkaline Phosphatase 43 units/L (35-129) 12/02/16 05:51 Total Creatine Kinase 133 units/L (55-170) 12/01/16 10:47 NT-Pro-B Natriuret Pep 2725 pg/mL (0-900) H 11/30/16 23:18 Total Protein 5.8 g/dL (6.3-8.2) L D 12/02/16 05:51 Albumin 3.4 g/dL (3.9-5) L 12/02/16 05:51 Albumin/Globulin Ratio 1.4 % 12/02/16 05:51 Lipase 33 units/L (13-60) 12/01/16 02:49 Prostate Specific Ag 1.74 ng/mL (0.00-4.00) 12/04/16 05:39 Urine Color [place] (Yellow) 12/01/16 02:36 Urine Turbidity Cloudy (Clear) 12/01/16 02:36 Urine pH 5.0 (5.0-7.0) 12/01/16 02:36 Ur Specific [place] 1.021 (1.003-1.030) 12/01/16 02:36 Urine Protein 30 mg/dl mg/dL (Negative) 12/01/16 02:36 Urine Glucose (UA) 50 mg/dL (Negative) 12/01/16 02:36 Urine Ketones Neg mg/dL (Negative) 12/01/16 02:36 Urine Blood Neg (Negative) 12/01/16 02:36 Urine Nitrite Neg (Negative) 12/01/16 02:36 Urine Bilirubin Neg (Negative) 12/01/16 02:36 Urine Urobilinogen 2.0 mg/dL (<2.0) 12/01/16 02:36 Ur Leukocyte Esterase Neg (Negative) 12/01/16 02:36 Urine WBC (Auto) 13.0 /HPF (0.0-6.0) H 12/01/16 02:36 Urine RBC (Auto) 3.0 /HPF (0.0-6.0) 12/01/16 02:36 U Epithel Cells (Auto) 1.0 /HPF (0-13.0) 12/01/16 02:36 Amorphous Crystals 1+ 12/01/16 02:36 Hyaline Casts 38 /LPF 12/01/16 02:36 Urine Mucus Few /HPF 12/01/16 02:36 Urine Opiates Screen Presumptive negative 12/01/16 02:36 Urine Methadone Screen Presumptive negative 12/01/16 02:36 Ur Barbiturates Screen Presumptive negative 12/01/16 02:36 Ur Phencyclidine Scrn Presumptive negative 12/01/16 02:36 Ur Amphetamines Screen Presumptive negative 12/01/16 02:36 U Benzodiazepines Scrn Presumptive negative 12/01/16 02:36 Urine Cocaine Screen Presumptive positive 12/01/16 02:36 U Marijuana (THC) Screen Presumptive negative 12/01/16 02:36 Drugs of Abuse Note Disclamer 12/01/16 02:36 Plasma/Serum Alcohol < 0.01 gm% (0-0.07) 11/30/16 23:18 JORDAN Screen Negative (Negative) 12/02/16 05:51 Complement C3 145 mg/dL (90-180) 12/01/16 10:47 Complement C4 30 mg/dL (16-47) 12/01/16 10:46 Tot Complement (CH50) >60 U/mL (31-60) H 12/02/16 10:46 Hep Bs Antigen Non-reactive (Negative) 12/02/16 05:51 Hepatitis C Antibody Non-reactive (NonReactive) 12/02/16 05:51
--- NOTE | 2016-12-07 20:06 | Progress Note ---
Subjective - Reason for Consult Reason for consult: psych management - Chief Complaint Chief complaint: Patient is a 56 year old BM with prior psych history of MDD. Patient continues to insist that his OD was a "mistake" and secondary to finding GOD and identifying several of his triggers that precipitated his actions, he doesn't need to get any acute help. "I've been praying. I think I was just going through a lot." Patient did take the antidepressant but feels that he won't need it. We again discussed the importance of this medication as well as therapy- which he understood. He continues to deny any SI and hasn't shown any actions of harm to self. No SI/HI/AH/VH. Mental Status Exam - Vital signs Last Vital Signs Temp 98.4 F 12/07/16 17:44 Pulse 70 12/07/16 17:44 Resp 20 12/07/16 17:44 BP 162/88 12/07/16 17:44 Pulse Ox 99 12/07/16 17:44 - Exam Orientation: time, place, person Affect: normal Mood: other (less depressed) Thought Process: Intact Perceptions: none Speech: normal rate and pattern Concentration: focused Motor activity: normal Level of consciousness: alert Memory: Intact Interaction: cooperative Assessment and Plan 56 year old BM who presents to [facility] after a suicide attempt via overdose on his blood pressure medications. Patient notes that he's less depressed and was not tearful during the interview. He notes that he's learned from this mistake and has turned to God- insisting that he doesn't need further help. He says he understands the value of additional treatment- both through meds and ongoing therapy. He denies symptoms of psychosis and jimy. Contributing to the depression is ongoing etoh and substance abuse. Plan: 1 depression- tolerating effexor xr 75 mg daily to regimen for depression. 2. will also need outpt therapy to deal with self esteem, worthlessness, and past family issues 3. substance use- patient will benefit from outpt substance groups such as AA. No current withdrawal symptoms to address. 4 dispo- need to work on dispo options such as outpt mental health - Patient Problems (1) Severe recurrent major depression without psychotic features Current Visit: Yes Status: Chronic (2) EtOH dependence Current Visit: Yes Status: Chronic Qualifiers: Substance use status: uncomplicated Complication of substance-induced condition: C Qualified Code(s): F10.20 - Alcohol dependence, uncomplicated
[2016-12-07] MEDS: RESTORIL PO PRN (21:55)
[2016-12-08] MEDS: HEPARIN SUB-Q SCH ×3 (06:23→22:49)
--- NOTE | 2016-12-08 10:07 | Progress Note ---
Assessment and Plan (1) Acute renal failure Current Visit: Yes Status: Acute Qualifiers: Acute renal failure type: unspecified Qualified Code(s): N17.9 - Acute kidney failure, unspecified Plan to address problem: Kidney function improving. CR at 1.4 based on labs from 12/06. Obtain labs today. Encourage oral hydration. (2) Benign hypertension without CHF Current Visit: Yes Status: Acute Plan to address problem: Stable, Follow-up blood pressure on current medications (3) Cocaine abuse Current Visit: Yes Status: Chronic Plan to address problem: Discuss cessation of cocaine use in detail prior to discharge. (4) Intentional overdose of drug in tablet form Current Visit: Yes Status: Acute Plan to address problem: Patient is hemodynamically stable. Continue close monitoring Subjective Date of service: 12/08/16 Principal diagnosis: acute kidney failure Interval history: No new events. No N/V/D. No SOB/CP Objective - Exam Narrative Exam: Middle-aged -[place] female lying in bed in no acute distress PERRLA, EOMI, has eye drainage B/L Supple neck, No lymphadenopathy, no thyroid enlargement CVS S1-S2 regular rate rhythm without murmur, rub or gallop Chest clear to auscultation, no wheezing Abdomen soft nondistended nontender no organomegaly no bruit bowel sounds present Extremities no edema no cyanosis or clubbing Neuro awake, alert oriented x3 no gross deficit - Vital Signs Vital signs: Vital Signs - 12hr 12/08/16 12/08/16 00:18 05:33 Temperature 98.2 F 98.2 F Pulse Rate [ 64 62 Right Dorsalis Pedis] Respiratory 18 20 Rate Blood Pressure 121/60 141/90 [Left Arm] O2 Sat by Pulse 98 98 Oximetry - Lab 12/01/16 08:17 12/06/16 04:48 Most recent lab results Calcium 9.0 mg/dL (8.4-10.2) 12/06/16 04:48 Phosphorus 2.9 mg/dL (2.5-4.5) 12/02/16 05:51 Magnesium 2.0 mg/dL (1.7-2.3) 11/30/16 23:18
[2016-12-08] MEDS: EFFEXOR XR PO SCH (10:15)
[2016-12-08] MEDS: HABITROL TD SCH (10:15)
[2016-12-08] MEDS: PEPCID PO SCH (10:15)
[2016-12-08] MEDS: COLACE PO SCH ×2 (10:15→22:00)
[2016-12-08 11:15] LABS: Anion Gap 17 mmol/L; BUN/Creatinine Ratio 8.33; Blood Urea Nitrogen 10 mg/dL (9-20); Calcium 9.5 mg/dL (8.4-10.2); Carbon Dioxide 25 mmol/L (22-30); Chloride 98.3 mmol/L (98-107); Glucose 110 mg/dL (75-100); Potassium 4.6 mmol/L (3.6-5.0); Sodium 136 mmol/L (137-145)
--- NOTE | 2016-12-08 17:14 | Discharge Summary ---
Providers - Providers Date of Admission: 12/01/16 03:52 Attending physician: NOEL MARES 12/01/16 06:17 Consult to Physician [CONS] Routine Consulting Provider: ERIKA PACKER Reason For Exam: jt Place consult to:: answering service Notified:: yes Time called:: 06:40 12/01/16 06:37 Consult to Mental Health [CONS] Routine Reason For Exam: suicidal attempt Place consult to:: psych Notified:: yes Phone number called:: [phone] Was contact made?: Yes If yes, spoke with:: Terence Time called:: 08:23 12/05/16 15:36 Consult to Physician [CONS] Routine Consulting Provider: CHARMAINE CORDERO Reason For Exam: depression, suicide attempt Place consult to:: depression, suicide Notified:: yes Phone number called:: [phone] Time called:: 11:45 Comment:: will see patient on Thursday Primary care physician: RIC MOONEY MD Hospitalization Condition: Serious Disposition: STILL A PATIENT - Discharge Diagnoses (1) Accelerated essential hypertension Status: Acute (2) Acute renal failure Status: Acute Qualifiers: Acute renal failure type: unspecified Qualified Code(s): N17.9 - Acute kidney failure, unspecified (3) Cocaine abuse Status: Chronic (4) Intentional overdose of drug in tablet form Status: Acute (5) DVT prophylaxis Status: Acute Exam - Constitutional Vitals: Temp Pulse Resp BP Pulse Ox 97.8 F 68 18 151/90 98 12/08/16 12:00 12/08/16 12:00 12/08/16 12:00 12/08/16 12:00 12/08/16 05:33 Plan Follow up with: RIC MOONEY MD [Primary Care Provider] - 3-5 Days Prescriptions: Venlafaxine Xr [Effexor Xr] 75 mg PO QDAY #30 capsule
--- NOTE | 2016-12-08 21:39 | Progress Note ---
Subjective - Reason for Consult Reason for consult: psych managment - Chief Complaint Chief complaint: Patient continues to deny any SI/HI/AH/VH. He notes that he is ready to leave. He has some depression but hasn't shown any risk of self harm. He has been compliant with his meds. We discussed how he is going to care for self when he leaves. Mental Status Exam - Vital signs Last Vital Signs Temp 97.8 F 12/08/16 20:00 Pulse 72 12/08/16 20:00 Resp 18 12/08/16 20:00 BP 170/105 12/08/16 20:00 Pulse Ox 98 12/08/16 20:00 - Exam Orientation: time, place, person Affect: depressed Mood: appropriate Thought Process: Intact Perceptions: none Speech: normal rate and pattern Concentration: focused Motor activity: normal Level of consciousness: alert Memory: Intact Assessment and Plan 56 year old BM who presents to [facility] after a suicide attempt via overdose on his blood pressure medications. Plan: 1 depression- tolerating effexor xr 75 mg daily to regimen for depression. 2. will also need outpt therapy to deal with self esteem, worthlessness, and past family issues 3. substance use- patient will benefit from outpt substance groups such as AA. No current withdrawal symptoms to address. 4 dispo- pt is not a risk of self harm at this time- can dc once it's been finalized for him to let his probabtion officer know he will be turning himself in to finish the terms of his probation. - Patient Problems (1) Severe recurrent major depression without psychotic features Current Visit: Yes Status: Chronic (2) EtOH dependence Current Visit: Yes Status: Chronic Qualifiers: Substance use status: uncomplicated Complication of substance-induced condition: C Qualified Code(s): F10.20 - Alcohol dependence, uncomplicated
[2016-12-09] MEDS: HEPARIN SUB-Q SCH (06:21)
--- NOTE | 2016-12-09 06:35 | Progress Note ---
Assessment and Plan - Patient Problems (1) Accelerated essential hypertension Current Visit: Yes Status: Acute Plan to address problem: monitor bp q shift, continue current therapy (2) Acute renal failure Current Visit: Yes Status: Resolved Qualifiers: Acute renal failure type: unspecified Qualified Code(s): N17.9 - Acute kidney failure, unspecified Plan to address problem: Increase free water intake, (3) Cocaine abuse Current Visit: Yes Status: Chronic Plan to address problem: Pt counseled. (4) Intentional overdose of drug in tablet form Current Visit: Yes Status: Acute Plan to address problem: Mental health consulted, [address] (5) DVT prophylaxis Current Visit: Yes Status: Acute History Interval history: Pt lying in bed, minimally cooperative. Pt denies pain. No reported nursing events overnight.Pt S/P Psych evaluation. Pt discharged home. Hospitalist Physical - Constitutional Vitals: Temp Pulse Resp BP Pulse Ox 97.7 F 57 L 18 123/85 99 12/09/16 04:00 12/09/16 04:00 12/09/16 04:00 12/09/16 04:00 12/09/16 04:00 General appearance: Present: no acute distress - EENT Eyes: Present: PERRL, EOM intact ENT: hearing intact - Neck Neck: Present: supple - Respiratory Respiratory effort: normal Respiratory: bilateral: CTA - Cardiovascular Rhythm: regular Heart Sounds: Present: S1 & S2 - Extremities Extremities: no ischemia Peripheral Pulses: within normal limits - Abdominal General gastrointestinal: soft, non-tender, non-distended - Integumentary Integumentary: Present: clear, warm, dry - Psychiatric Psychiatric: appropriate mood/affect, cooperative - Neurologic Neurologic: CNII-XII intact Results - Labs CBC & Chem 7: 12/01/16 08:17 12/08/16 10:34 Labs: Laboratory Last Values WBC 11.8 K/mm3 (4.5-11.0) H 12/01/16 08:17 RBC 4.61 M/mm3 (3.65-5.03) 12/01/16 08:17 Hgb 14.2 gm/dl (11.8-15.2) 12/01/16 08:17 Hct 43.0 % (35.5-45.6) 12/01/16 08:17 MCV 93 fl (84-94) 12/01/16 08:17 MCH 31 pg (28-32) 12/01/16 08:17 MCHC 33 % (32-34) 12/01/16 08:17 RDW 13.0 % (13.2-15.2) L 12/01/16 08:17 Plt Count 252 K/mm3 (140-440) 12/01/16 08:17 Lymph % (Auto) 12.1 % (13.4-35.0) L 11/30/16 23:18 [place] % (Auto) 10.2 % (0.0-7.3) H 11/30/16 23:18 Eos % (Auto) 0.4 % (0.0-4.3) 11/30/16 23:18 Baso % (Auto) 0.2 % (0.0-1.8) 11/30/16 23:18 Lymph # 1.6 K/mm3 (1.2-5.4) 11/30/16 23:18 [place] # 1.3 K/mm3 (0.0-0.8) H 11/30/16 23:18 Eos # 0.0 K/mm3 (0.0-0.4) 11/30/16 23:18 Baso # 0.0 K/mm3 (0.0-0.1) 11/30/16 23:18 Seg Neutrophils % 77.1 % (40.0-70.0) H 11/30/16 23:18 Seg Neutrophils # 9.9 K/mm3 (1.8-7.7) H 11/30/16 23:18 PT 13.8 Sec. (12.2-14.9) 12/01/16 02:49 INR 1.07 (0.87-1.13) 12/01/16 02:49 APTT 26.9 Sec. (24.2-36.6) 12/01/16 02:49 Sodium 136 mmol/L (137-145) L 12/08/16 10:34 Potassium 4.6 mmol/L (3.6-5.0) 12/08/16 10:34 Chloride 98.3 mmol/L (98-107) 12/08/16 10:34 Carbon Dioxide 25 mmol/L (22-30) 12/08/16 10:34 Anion Gap 17 mmol/L 12/08/16 10:34 BUN 10 mg/dL (9-20) 12/08/16 10:34 Creatinine 1.2 mg/dL (0.8-1.5) 12/08/16 10:34 Estimated GFR > 60 ml/min 12/08/16 10:34 BUN/Creatinine Ratio 8.33 % 12/08/16 10:34 Glucose 110 mg/dL (75-100) H 12/08/16 10:34 Lactic Acid 1.4 mmol/L (0.7-2.0) 12/01/16 02:49 Calcium 9.5 mg/dL (8.4-10.2) 12/08/16 10:34 Phosphorus 2.9 mg/dL (2.5-4.5) 12/02/16 05:51 Magnesium 2.0 mg/dL (1.7-2.3) 11/30/16 23:18 Total Bilirubin 0.8 mg/dL (0.1-1.2) 12/02/16 05:51 Direct Bilirubin < 0.2 mg/dL (0-0.2) 12/01/16 02:49 Indirect Bilirubin 0.3 mg/dL 12/01/16 02:49 AST 10 units/L (5-40) 12/02/16 05:51 ALT 8 units/L (7-56) 12/02/16 05:51 Alkaline Phosphatase 43 units/L (35-129) 12/02/16 05:51 Total Creatine Kinase 133 units/L (55-170) 12/01/16 10:47 NT-Pro-B Natriuret Pep 2725 pg/mL (0-900) H 11/30/16 23:18 Total Protein 5.8 g/dL (6.3-8.2) L D 12/02/16 05:51 Albumin 3.4 g/dL (3.9-5) L 12/02/16 05:51 Albumin/Globulin Ratio 1.4 % 12/02/16 05:51 Lipase 33 units/L (13-60) 12/01/16 02:49 Prostate Specific Ag 1.74 ng/mL (0.00-4.00) 12/04/16 05:39 Urine Color [place] (Yellow) 12/01/16 02:36 Urine Turbidity Cloudy (Clear) 12/01/16 02:36 Urine pH 5.0 (5.0-7.0) 12/01/16 02:36 Ur Specific [place] 1.021 (1.003-1.030) 12/01/16 02:36 Urine Protein 30 mg/dl mg/dL (Negative) 12/01/16 02:36 Urine Glucose (UA) 50 mg/dL (Negative) 12/01/16 02:36 Urine Ketones Neg mg/dL (Negative) 12/01/16 02:36 Urine Blood Neg (Negative) 12/01/16 02:36 Urine Nitrite Neg (Negative) 12/01/16 02:36 Urine Bilirubin Neg (Negative) 12/01/16 02:36 Urine Urobilinogen 2.0 mg/dL (<2.0) 12/01/16 02:36 Ur Leukocyte Esterase Neg (Negative) 12/01/16 02:36 Urine WBC (Auto) 13.0 /HPF (0.0-6.0) H 12/01/16 02:36 Urine RBC (Auto) 3.0 /HPF (0.0-6.0) 12/01/16 02:36 U Epithel Cells (Auto) 1.0 /HPF (0-13.0) 12/01/16 02:36 Amorphous Crystals 1+ 12/01/16 02:36 Hyaline Casts 38 /LPF 12/01/16 02:36 Urine Mucus Few /HPF 12/01/16 02:36 Urine Opiates Screen Presumptive negative 12/01/16 02:36 Urine Methadone Screen Presumptive negative 12/01/16 02:36 Ur Barbiturates Screen Presumptive negative 12/01/16 02:36 Ur Phencyclidine Scrn Presumptive negative 12/01/16 02:36 Ur Amphetamines Screen Presumptive negative 12/01/16 02:36 U Benzodiazepines Scrn Presumptive negative 12/01/16 02:36 Urine Cocaine Screen Presumptive positive 12/01/16 02:36 U Marijuana (THC) Screen Presumptive negative 12/01/16 02:36 Drugs of Abuse Note Disclamer 12/01/16 02:36 Plasma/Serum Alcohol < 0.01 gm% (0-0.07) 11/30/16 23:18 JORDAN Screen Negative (Negative) 12/02/16 05:51 Complement C3 145 mg/dL (90-180) 12/01/16 10:47 Complement C4 30 mg/dL (16-47) 12/01/16 10:46 Tot Complement (CH50) >60 U/mL (31-60) H 12/02/16 10:46 Hep Bs Antigen Non-reactive (Negative) 12/02/16 05:51 Hepatitis C Antibody Non-reactive (NonReactive) 12/02/16 05:51
--- NOTE | 2016-12-09 09:05 | Progress Note ---
Subjective - Reason for Consult Reason for consult: 12/09/16 - Chief Complaint Chief complaint: Patient states that he's ready to go. He denies any SI/HI/AH/VH. He notes that he will go to shelter to serve time left (20 days). He's called his hospital security officer to let her know. Patient states that its worth just getting it over with (pt was given option to serve the time on the weekends.). He is calm and showing no symptoms of self harm. Denies any paranoia or euphoria. He 's tolerating his meds. Mental Status Exam - Vital signs Last Vital Signs Temp 97.7 F 12/09/16 04:00 Pulse 57 L 12/09/16 04:00 Resp 18 12/09/16 04:00 BP 123/85 12/09/16 04:00 Pulse Ox 99 12/09/16 04:00 - Exam Orientation: time, place, person Affect: normal Mood: appropriate Thought Process: Intact Perceptions: none Speech: normal rate and pattern Concentration: focused Motor activity: normal Level of consciousness: alert Memory: Intact Mini mental status exam(if necessary): 24-30 Assessment and Plan 56 year old BM who presents to [facility] after a suicide attempt via overdose on his blood pressure medications. Plan: 1 depression- tolerating meds - stable for discharge 2. will also need outpt therapy to deal with self esteem, worthlessness, and past family issues 3. substance use- patient will benefit from outpt substance groups such as AA. No current withdrawal symptoms to address. 4 dispo- pt is not a risk of self harm at this time- rescind 1013 today as patient doesn't need acute psych care any longer - Patient Problems (1) Severe recurrent major depression without psychotic features Current Visit: Yes Status: Chronic (2) EtOH dependence Current Visit: Yes Status: Chronic Qualifiers: Substance use status: uncomplicated Complication of substance-induced condition: C Qualified Code(s): F10.20 - Alcohol dependence, uncomplicated
[2016-12-09 10:19] VITALS: BP 137/83
--- NOTE | 2016-12-09 10:41 | Discharge Summary ---
Providers - Providers Date of Admission: 12/01/16 03:52 Date of discharge: 12/09/16 Attending physician: KATALINA JESUS MD 12/01/16 06:17 Consult to Physician [CONS] Routine Consulting Provider: ERIKA PACKER Reason For Exam: jt Place consult to:: answering service Notified:: yes Time called:: 06:40 12/01/16 06:37 Consult to Mental Health [CONS] Routine Reason For Exam: suicidal attempt Place consult to:: psych Notified:: yes Phone number called:: [phone] Was contact made?: Yes If yes, spoke with:: Terence Time called:: 08:23 12/05/16 15:36 Consult to Physician [CONS] Routine Consulting Provider: CHARMAINE CORDERO Reason For Exam: depression, suicide attempt Place consult to:: depression, suicide Notified:: yes Phone number called:: [phone] Time called:: 11:45 Comment:: will see patient on Thursday Primary care physician: HARDWARE INSTALLATION COORDINATOR Hospitalization Reason for admission: suicidal ideation Condition: Good Hospital course: Patient was admitted to the floor after he was presented to the emergency department with complaints of overdose his medications with the intent of suicidal ideation. Patient had weakness and acute renal failure. Patient had uncontrolled blood pressure. Patient was appropriately treated for his overdose and kidney failure. Psych was consulted and cleared for discharge. At the time of discharge patient was stable and patient states he is going to longterm to finish his longterm time. patient was alert and oriented at the time of discharge, patient denied suicidal ideation. He was given 1 months supply medication prescription Disposition: DISCHARGED TO HOME OR SELFCARE Time spent for discharge: 31 minutes - Discharge Diagnoses (1) Accelerated essential hypertension Status: Acute (2) Dehydration Status: Acute (3) Suicidal behavior Status: Acute (4) Suicidal ideation Status: Acute Core Measure Documentation - Palliative Care Palliative Care/ Comfort Measures: Not Applicable - Core Measures Any of the following diagnoses?: none Exam - Physical Exam Narrative exam: Not in cardiopulmonary distress. The patient appeared well nourished and normally developed. Vital signs as documented. Head exam is unremarkable. No scleral icterus . Neck is without jugular venous distension, thyromegaly, or carotid bruits. Lungs are clear to auscultation. Cardiac exam reveals regular rate and Rhythm. First and second heart sounds normal. No murmurs, rubs or gallops. Abdominal exam reveals normal bowel sounds, no masses, no organomegaly and no aortic enlargement. Extremities are nonedematous and both femoral and pedal pulses are normal. ANALYTICAL TECH: Alert and oriented 3. No focal weakness. - Constitutional Vitals: Temp Pulse Resp BP Pulse Ox 97.9 F 61 16 137/83 99 12/09/16 07:55 12/09/16 07:55 12/09/16 07:55 12/09/16 07:55 12/09/16 07:55 Plan Activity: no restrictions Diet: low cholesterol, low salt Follow up with: PRIMARY CARE, [Primary Care Provider] - 3-5 Days Prescriptions: amLODIPine [Norvasc] 5 mg PO DAILY #30 tablet Venlafaxine Xr [Effexor Xr] 75 mg PO QDAY #30 capsule
[2016-12-09] MEDS: EFFEXOR XR PO SCH (10:48)
[2016-12-09] MEDS: PEPCID PO SCH (10:48)
[2016-12-09] MEDS: COLACE PO SCH (10:48)
[2016-12-09] MEDS: HABITROL TD SCH (10:49)
== END 2016-12-09 11:26 | disposition home or self-care (01) | DRG 917 ==
LOC: EEVIPCON 20:45 → ED 20:45 → 4A 12-01 03:52
PROVIDERS: ADMIT Internal Medicine; ATTEND Internal Medicine
DX: T46.5X2A Poisoning by other antihypertensive drugs, intentional self-harm, initial encounter (principal); N17.0 Acute kidney failure with tubular necrosis; R45.851 Suicidal ideations; R46.89 Other symptoms and signs involving appearance and behavior; F17.210 Nicotine dependence, cigarettes, uncomplicated; F14.10 Cocaine abuse, uncomplicated; F10.10 Alcohol abuse, uncomplicated; E86.0 Dehydration; I10 Essential (primary) hypertension; Z90.49 Acquired absence of other specified parts of digestive tract; Z85.038 Personal history of other malignant neoplasm of large intestine; Z80.3 Family history of malignant neoplasm of breast; Y92.009 Unspecified place in unspecified non-institutional (private) residence as the place of occurrence of the external cause; Z72.89 Other problems related to lifestyle
CPT/HCPCS: 36415; 76770; 76857; 80048; 80053; 80074; 80307; 80320; 81001; 82140; 82550; 83690; 83735; 83880; 84100; 84153; 85025; 85027; 85610; 85730; 86038; 86160; 86162; 86706; 86803; 93005; 93010; 96360; 96361; 99406; G0480; J1644; J7030

== ENCOUNTER 2017-08-31 18:43 | Emergency (ER) | payer SELFPAY ==
[2017-08-31 19:42] LABS: Basophils % (Auto) 0.3 % (0.0-1.8); Eosinophils % (Auto) 0.6 % (0.0-4.3); Hematocrit 46.8 % (35.5-45.6); Hemoglobin 15.7 gm/dl (11.8-15.2); Mean Corpuscular HGB Conc 34 % (32-34); Mean Corpuscular Hemoglobin 32 pg (28-32); Mean Corpuscular Volume 94 fl (84-94); Platelet Count 191 K/mm3 (140-440); Red Blood Count 4.97 M/mm3 (3.65-5.03); Red Cell Distribution Width 13.2 % (13.2-15.2); White Blood Count 9.8 K/mm3 (4.5-11.0)
[2017-08-31 19:53] LABS: Anion Gap 18 mmol/L; BUN/Creatinine Ratio 11; Blood Urea Nitrogen 13 mg/dL (9-20); Calcium 9.6 mg/dL (8.4-10.2); Carbon Dioxide 25 mmol/L (22-30); Chloride 99.7 mmol/L (98-107); Glucose 118 mg/dL (75-100); Potassium 3.7 mmol/L (3.6-5.0); Sodium 139 mmol/L (137-145)
[2017-08-31 19:54] LABS: INR 0.99 (0.87-1.13)
[2017-08-31 19:55] LABS: Partial Thromboplastin Time 26.4 Sec. (24.2-36.6)
[2017-08-31] MEDS ORDERED: NORMODYNE IV ONE (20:13)
[2017-08-31] MEDS ORDERED: DILAUDID IV ONE (20:30)
[2017-08-31] MEDS ORDERED: ZOFRAN IV ONE (20:30)
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
[2017-08-31] MEDS ORDERED: KEPPRA 1,000 MG/NS 0.75% 100ML 1,000 MG/100 ML BAG IV ONE (23:36)
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
[2017-09-01 01:30] VITALS: BP 135/87
== END 2017-09-01 01:46 | disposition other institution (70) ==
LOC: ED 18:43
DX: S06.5X0A Traumatic subdural hemorrhage without loss of consciousness, initial encounter (principal); S02.81XA Fracture of other specified skull and facial bones, right side, initial encounter for closed fracture; R51 Headache; I10 Essential (primary) hypertension; F17.200 Nicotine dependence, unspecified, uncomplicated; F10.10 Alcohol abuse, uncomplicated; Y09 Assault by unspecified means; Y92.89 Other specified places as the place of occurrence of the external cause; Y93.89 Activity, other specified; Y99.8 Other external cause status
CPT/HCPCS: 36415; 70450; 70486; 80048; 85025; 85610; 85730; 96374; 96375; 99285; J1170; J1953; J2405